=== PATIENT | male | born 1945 | race American Indian/Alaskan Native ===

== ENCOUNTER 2021-03-01 07:09 | Inpatient (IN) | payer OTHER, MEDICARE ==
--- NOTE | 2021-03-01 08:03 | XRay Report ---
CHEST 2 VIEWS INDICATION: SOB. COMPARISON: 08/12/2017 FINDINGS: Support devices: None. Heart: Within normal limits. Lungs/pleura: Small bilateral pleural effusions, left greater than right are identified which appear unchanged since 2018. This may represent chronic pleural thickening. Emphysematous changes are suspec nathan in the upper lung zones, right greater than left. No acute infiltrate or pneumothorax. Additional findings: None. IMPRESSION: No significant change since 08/12/2017. Small pleural effusions versus pleural thickening at the lung bases is noted and unchanged. I favor chronic pleural thickening. Emphysema. Signer Name: Abdelrahman Haley Jr, MD Signed: 03/01/2021 7:58 AM Workstation Name: [id number]
[2021-03-01 08:08] LABS: Basophils % (Auto) 0.5 % (0.0-1.8); Eosinophils # (Auto) 0.3 K/mm3 (0.0-0.4); Eosinophils % (Auto) 4.7 % (0.0-4.3); Hematocrit 44.9 % (35.5-45.6); Hemoglobin 15.3 gm/dl (11.8-15.2); Lymphocytes # (Auto) 1.3 K/mm3 (1.2-5.4); Lymphocytes % (Auto) 18.2 % (13.4-35.0); Mean Corpuscular HGB Conc 34 % (32-34); Mean Corpuscular Volume 97 fl (84-94); Monocytes # (Auto) 0.9 K/mm3 (0.0-0.8); Monocytes % (Auto) 12.4 % (0.0-7.3); Platelet Count 213 K/mm3 (140-440); Red Blood Count 4.64 M/mm3 (3.65-5.03)
[2021-03-01 08:48] LABS: Alanine Aminotransferase 29 units/L (7-56); Albumin 3.9 g/dL (3.9-5); BUN/Creatinine Ratio 12; Blood Urea Nitrogen 17 mg/dL (9-20); Calcium 9.2 mg/dL (8.4-10.2); Hemolysis Index 4
[2021-03-01] MEDS ORDERED: ALBUTEROL 2.5 MG/3 ML NEBU IH ONE ×3 (18:13→20:22)
[2021-03-01] MEDS ORDERED: IPRATROPIUM 0.02% NEBU 2.5 ML IH ONE ×3 (18:13→20:22)
[2021-03-01] MEDS ORDERED: methylPREDNISolone Sod Succinate 125 MG/2 ML INJ IV ONE (18:13)
[2021-03-01] MEDS ORDERED: MAGNESIUM SULFATE 2 GM/50 ML BAG IV ONE (18:13)
--- NOTE | 2021-03-01 18:34 | Emergency Department Report ---
ED Shortness of Breath HPI - General Chief Complaint: Dyspnea/Respdistress Stated Complaint: SOB Time Seen by Provider: 03/01/21 18:06 Source: patient, family Mode of arrival: Wheelchair Limitations: Other - History of Present Illness Initial Comments: 76-year-old male, history of COPD (chronically on 3 L O2), hypertension, presents to ED with difficulty breathing. Patient actually presented to the ED earlier this morning at around 7 AM. Patient reports difficulty breathing since last night. Reports he has had a cough for proximately 1 week. States he used his breathing machine at home without improvement. Patient also reports some associated diarrhea and mild loss of smell and taste. Patient states he has been fully vaccinated against COVID-19 a couple of months ago with the Moderna vaccine. Patient brought back from the waiting room due to worsening of his symptoms. PCP: the [place] Complaint: shortness of breath -: Last night Severity: moderate Consistency: constant Improves With: bronchodilators Worsens With: exertion Known History Of: COPD Associated Symptoms: cough Treatments Prior to Arrival: bronchodilator - Related Data Home Oxygen Therapy: Yes Home Oxygen Amount: 3 Liters Home Medications Medication Instructions Recorded Confirmed Last Taken Aspirin EC [Halfprin EC] 81 mg PO QDAY 05/17/15 08/12/17 08/11/17 AtorvaSTATin [Lipitor] 40 mg PO QDAY 05/17/15 08/12/17 08/11/17 Bisoprolol Fumarate [Zebeta] 10 mg PO DAILY 05/17/15 08/12/17 08/11/17 Budesoni/Formotero 160-4.5(Nf) 2 puff IH BID 05/17/15 08/12/17 08/11/17 [Symbicort 160-4.5 (Nf)] Docusate Sodium [Colace CAP] 100 mg PO QDAY PRN 05/17/15 08/12/17 08/11/17 Isosorbide Mononitrate 30 mg PO QAM 05/17/15 08/12/17 08/11/17 Omeprazole [PriLOSEC] 20 mg PO QDAY 05/17/15 08/12/17 08/11/17 PARoxetine HCL [PARoxetine] 40 mg PO QAM 05/17/15 08/12/17 08/11/17 Prazosin 2 mg PO QHS 05/17/15 08/12/1708/11/18 Sennosides [Senna Lax] 8.6 mg PO QDAY PRN 05/17/15 08/12/17 08/11/17 SEROquel 100 mg PO QHS 08/13/17 08/13/17 08/11/17 22:00 100 mg Previous Rx's Medication Instructions Recorded Last Taken Type Albuterol Mdi (or & Nicu Only) 1 puff IH Q6HR PRN #1 inha 05/20/15 08/11/17 Rx [ProAir HFA Inhaler] Budesonide [Pulmicort Respules] 0.5 mg IH Q12HR #30 nebu 05/20/15 08/11/17 Rx Ipratropium/Albuterol Sulfate 1 ampul IH Q6HR #30 ampul.neb 05/20/15 08/11/17 Rx [DUONEB *Not for PRN Use*] predniSONE [Deltasone] 20 mg PO QDAY #10 tab 05/20/15 08/11/17 Rx Budesonide [Pulmicort Respules] 0.5 mg IH Q12HRT #30 day 08/15/17 Unknown Rx Clopidogrel Bisulfate [Plavix] 75 mg PO QDAY #30 tablet 08/15/17 Unknown Rx ISOSORBIDE MONOnitrate [Imdur ER] 30 mg PO DAILY #30 tablet 08/15/17 Unknown Rx Ipratropium/Albuterol Sulfate 1 ampul IH Q6HRT PRN #30 day 08/15/17 Unknown Rx [DUONEB *Not for PRN Use*] levoFLOXacin [Levaquin TAB] 750 mg PO Q24HR #4 day 08/15/17 Unknown Rx methylPREDNISolone [Medrol Dose 1 dose PO DAILY #1 pack 08/15/17 Unknown Rx Jimmy] Allergies Allergy/AdvReac Type Severity Reaction Status Date / Time No Known Allergies Allergy Verified 03/01/21 07:10 ED Review of Systems ROS: Stated complaint: SOB Other details as noted in HPI Comment: All other systems reviewed and negative Constitutional: denies: fever Respiratory: cough, shortness of breath, wheezing Cardiovascular: denies: chest pain Gastrointestinal: diarrhea ED Past Medical Hx - Past Medical History Hx Hypertension: Yes Hx Heart Attack/AMI: Yes (2015) Hx Congestive Heart Failure: No Hx COPD: Yes Additional medical history: Anuerism Abd, cardia stents x2 - Surgical History Hx Coronary Stent: Yes (2015) Additional Surgical History: Anuerism repair. - Social History Smoking Status: Never Smoker Substance Use Type: None - Medications Home Medications: Home Medications Medication Instructions Recorded Confirmed Last Taken Type Aspirin EC [Halfprin EC] 81 mg PO QDAY 05/17/15 08/12/17 08/11/17 History AtorvaSTATin [Lipitor] 40 mg PO QDAY 05/17/15 08/12/17 08/11/17 History Bisoprolol Fumarate [Zebeta] 10 mg PO DAILY 05/17/15 08/12/17 08/11/17 History Budesoni/Formotero 160-4.5(Nf) 2 puff IH BID 05/17/15 08/12/17 08/11/17 History [Symbicort 160-4.5 (Nf)] Docusate Sodium [Colace CAP] 100 mg PO QDAY PRN 05/17/15 08/12/17 08/11/17 History Isosorbide Mononitrate 30 mg PO QAM 05/17/15 08/12/17 08/11/17 History Omeprazole [PriLOSEC] 20 mg PO QDAY 05/17/15 08/12/17 08/11/17 History PARoxetine HCL [PARoxetine] 40 mg PO QAM 05/17/15 08/12/17 08/11/17 History Prazosin 2 mg PO QHS 05/17/15 08/12/17 08/11/17 History Sennosides [Senna Lax] 8.6 mg PO QDAY PRN 05/17/15 08/12/17 08/11/17 History Albuterol Mdi (or & Nicu Only) 1 puff IH Q6HR PRN #1 inha 05/20/15 08/12/17 08/11/17 Rx [ProAir HFA Inhaler] Budesonide [Pulmicort Respules] 0.5 mg IH Q12HR #30 nebu 05/20/15 08/12/17 08/11/17 Rx Ipratropium/Albuterol Sulfate 1 ampul IH Q6HR #30 ampul.neb 05/20/15 08/12/17 08/11/17 Rx [DUONEB *Not for PRN Use*] predniSONE [Deltasone] 20 mg PO QDAY #10 tab 05/20/15 08/12/17 08/11/17 Rx SEROquel 100 mg PO QHS 08/13/17 08/13/17 08/11/17 22:00 History 100 mg Budesonide [Pulmicort Respules] 0.5 mg IH Q12HRT #30 day 08/15/17 Unknown Rx Clopidogrel Bisulfate [Plavix] 75 mg PO QDAY #30 tablet 08/15/17 Unknown Rx ISOSORBIDE MONOnitrate [Imdur ER] 30 mg PO DAILY #30 tablet 08/15/17 Unknown Rx Ipratropium/Albuterol Sulfate 1 ampul IH Q6HRT PRN #30 day 08/15/17 Unknown Rx [DUONEB *Not for PRN Use*] levoFLOXacin [Levaquin TAB] 750 mg PO Q24HR #4 day 08/15/17 Unknown Rx methylPREDNISolone [Medrol Dose 1 dose PO DAILY #1 pack 08/15/17 Unknown Rx Jimmy] ED Physical Exam - General Limitations: Other General appearance: alert - Head Head exam: Present: atraumatic, normocephalic - Eye Eye exam: Present: normal appearance, EOMI - ENT ENT exam: Present: mucous membranes moist - Respiratory Respiratory exam: Present: respiratory distress, wheezes, other (Tachypnea present) - Cardiovascular Cardiovascular Exam: Present: regular rate, normal rhythm - GI/Abdominal GI/Abdominal exam: Present: soft. Absent: distended, tenderness - Extremities Exam Extremities exam: Present: normal inspection. Absent: pedal edema, calf tenderness - Neurological Exam Neurological exam: Present: alert, oriented X3 - Psychiatric Psychiatric exam: Present: normal affect, normal mood - Skin Skin exam: Present: warm, dry, intact, normal color ED Course Vital Signs 03/01/21 03/01/21 03/01/21 07:10 15:46 18:01 Temperature 99.3 F 99.1 F Pulse Rate 88 82 108 H Pulse Rate [ Bilateral] Respiratory 36 H 16 32 H Rate Respiratory Rate [Bilateral ] Blood Pressure 121/85 156/94 Blood Pressure 152/95 [Right] O2 Sat by Pulse 92 96 88 Oximetry 03/01/21 03/01/21 18:43 22:29 Temperature Pulse Rate 99 H Pulse Rate [ 110 H Bilateral] Respiratory 19 Rate Respiratory 20 Rate [Bilateral ] Blood Pressure Blood Pressure 157/101 [Right] O2 Sat by Pulse 99 Oximetry ED Medical Decision Making - Lab Data Result diagrams: 03/01/21 07:35 03/01/21 21:40 - EKG Data -: EKG Interpreted by Me EKG shows normal: sinus rhythm, axis, intervals, QRS complexes, ST-T waves Rate: normal - EKG Data Interpretation: no acute changes - Radiology Data Radiology results: report reviewed, image reviewed - Medical Decision Making 76-year-old male presents to ED with COPD exacerbation. Patient with wheezing, tachypnea, use of accessory muscles. Patient given 1 hour nebulizer treatment along with Solu-Medrol and magnesium sulfate. Following initial treatment, patient continued to have some difficulty breathing, so another 0 was administered. Chest x-ray is negative. Covid markers sent as patient has been having some Covid-like symptoms over the last 1 week. Patient will be admitted to hospitalist, Dr. Castillo, for further management. - Differential Diagnosis COPD, pneumonia, COVID-19 Critical Care Time: Yes Critical care time in (mins) excluding proc time.: 35 Critical care attestation.: If time is entered above; I have spent that time in minutes in the direct care of this critically ill patient, excluding procedure time. Critical Care Time: 35 MIN ED Disposition Clinical Impression: Acute exacerbation of chronic obstructive pulmonary disease, Acute on chronic respiratory failure, Suspected COVID-19 virus infection Disposition: OP ADMIT IP TO THIS HOSP Is pt being admited?: Yes Condition: Stable Time of Disposition: 21:37
[2021-03-01] MEDS ORDERED: ACETAMINOPHEN 325 MG TAB PO ONE (20:23)
[2021-03-01 22:20] LABS: C-Reactive Protein 3.9 mg/dL (0.00-1.30)
[2021-03-01] MEDS ORDERED: MORPHINE 4 MG/1 ML INJ IV PRN (22:23)
[2021-03-01] MEDS ORDERED: MAGNESIUM HYDROXIDE (MOM) ORAL LIQD UDC PO PRN (22:23)
[2021-03-01] MEDS ORDERED: ONDANSETRON 4 MG/2 ML INJ IV PRN (22:23)
--- NOTE | 2021-03-01 22:35 | History and Physical Report ---
History of Present Illness Date of examination: 03/01/21 Date of admission: 03/01/21 21:37 Chief complaint: Difficulty Breathing History of present illness: 76-year-old male with known history of hypertension, COPD on 3 L of oxygen at home presents to the emergency room today complaining of shortness of breath that has been ongoing over the past 24 hours. He has also been having some cough productive of some whitish sputum. He has been using his nebulizing ann atment without any significant improvement. He denies any fever or chills, no chest pain, no headache or dizziness and no diaphoresis. He however indicates that he has had some mild loss of smell and taste and has had some episodes of diarrhea. Patient denies any sick contacts and no recent travel. Denies any contact with anyone with COVID-19. He has been fully vaccinated against COVID-19 with hemodialysis vaccine. Work-up in the emergency room today, chest x-ray shows no significant changes. There is small pleural effusions versus pleural thickening at the lung bases which is unchanged. Labs reveal level elevated D-dimer of about 3000. Past History Past Medical History: acute SC (In 2016), hypertension, other (Abdominal Aneurysm. ) Past Surgical History: PTCA, Other (Aneurysm repair) Social history: smoking (Former smoker) Family history: no significant family history Medications and Allergies Allergies Allergy/AdvReac Type Severity Reaction Status Date / Time No Known Allergies Allergy Verified 03/01/21 07:10 Home Medications Medication Instructions Recorded Confirmed Last Taken Type Aspirin EC [Halfprin EC] 81 mg PO QDAY 05/17/15 08/12/17 08/11/17 History AtorvaSTATin [Lipitor] 40 mg PO QDAY 05/17/15 08/12/17 08/11/17 History Bisoprolol Fumarate [Zebeta] 10 mg PO DAILY 05/17/15 08/12/17 08/11/17 History Budesoni/Formotero 160-4.5(Nf) 2 puff IH BID 05/17/15 08/12/17 08/11/17 History [Symbicort 160-4.5 (Nf)] Docusate Sodium [Colace CAP] 100 mg PO QDAY PRN 05/17/15 08/12/17 08/11/17 History Isosorbide Mononitrate 30 mg PO QAM 10/08/12/17 08/11/17 History Omeprazole [PriLOSEC] 20 mg PO QDAY 05/17/15 08/12/17 08/11/17 History PARoxetine HCL [PARoxetine] 40 mg PO QAM 05/17/15 08/12/17 08/11/17 History Prazosin 2 mg PO QHS 05/17/15 08/12/17 08/11/17 History Sennosides [Senna Lax] 8.6 mg PO QDAY PRN 05/17/15 08/12/17 08/11/17 History Albuterol Mdi (or & Nicu Only) 1 puff IH Q6HR PRN #1 inha 05/20/15 08/12/17 08/11/17 Rx [ProAir HFA Inhaler] Budesonide [Pulmicort Respules] 0.5 mg IH Q12HR #30 nebu 05/20/15 08/12/17 08/11/17 Rx Ipratropium/Albuterol Sulfate 1 ampul IH Q6HR #30 ampul.neb 05/20/15 08/12/17 08/11/17 Rx [DUONEB *Not for PRN Use*] predniSONE [Deltasone] 20 mg PO QDAY #10 tab 05/20/15 08/12/17 08/11/17 Rx SEROquel 100 mg PO QHS 08/13/17 08/13/17 08/11/17 22:00 History 100 mg Budesonide [Pulmicort Respules] 0.5 mg IH Q12HRT #30 day 08/15/17 Unknown Rx Clopidogrel Bisulfate [Plavix] 75 mg PO QDAY #30 tablet 08/15/17 Unknown Rx ISOSORBIDE MONOnitrate [Imdur ER] 30 mg PO DAILY #30 tablet 08/15/17 Unknown Rx Ipratropium/Albuterol Sulfate 1 ampul IH Q6HRT PRN #30 day 08/15/17 Unknown Rx [DUONEB *Not for PRN Use*] levoFLOXacin [Levaquin TAB] 750 mg PO Q24HR #4 day 08/15/17 Unknown Rx methylPREDNISolone [Medrol Dose 1 dose PO DAILY #1 pack 08/15/17 Unknown Rx Jimmy] Active Meds: Active Medications Acetaminophen (Acetaminophen 325 Mg Tab) 650 mg PO Q4H PRN PRN Reason: Pain MILD(1-3)/Fever >100.5/MARSHALL Albuterol/Ipratropium (Ipratropium/Albuterol Sulfate 3 Ml Ampul.Neb) 1 ampul IH Q4HRT BJ Magnesium Hydroxide (Magnesium Hydroxide (Mom) Oral Liqd Udc) 30 ml PO Q4H PRN PRN Reason: Constipation Methylprednisolone Sodium Succinate (Methylprednisolone Sod Succinate 40 Mg/1 Ml Inj) 40 mg IV Q8HR BJ Morphine Sulfate (Morphine 2 Mg/1 Ml Inj) 2 mg IV Q4H PRN PRN Reason: Pain, Moderate (4-6) Morphine Sulfate (Morphine 4 Mg/1 Ml Inj) 4 mg IV Q4H PRN PRN Reason: Pain , Severe (7-10) Ondansetron HCl (Ondansetron 4 Mg/2 Ml Inj) 4 mg IV Q8H PRN PRN Reason: Nausea And Vomiting Sodium Chloride (Sodium Chloride 0.9% 10 Ml Flush Syringe) 10 ml IV BID BJ Sodium Chloride (Sodium Chloride 0.9% 10 Ml Flush Syringe) 10 ml IV PRN PRN PRN Reason: LINE FLUSH Review of Systems Constitutional: no fever, no chills Ears, nose, mouth and throat: no nasal congestion, no sore throat Cardiovascular: no chest pain, no palpitations Respiratory: cough, shortness of breath Gastrointestinal: no abdominal pain, no nausea, no vomiting, no diarrhea Genitourinary Male: no dysuria, no hematuria, no flank pain, no nocturia Musculoskeletal: no neck pain, no low back pain Integumentary: no rash, no pruritis Neurological: no headaches, no confusion Psychiatric: no anxiety, no depression Endocrine: no polyphagia, no polydipsia, no polyuria, no nocturia Exam - Constitutional Vitals: Temp Pulse Resp BP Pulse Ox 99.1 F 110 H 20 157/101 99 03/01/21 18:01 03/01/21 22:29 03/01/21 22:29 03/01/21 18:43 03/01/21 18:43 General appearance: Present: no acute distress, well-nourished - EENT Eyes: Present: PERRL, EOM intact. Absent: scleral icterus ENT: hearing intact, clear oral mucosa, dentition normal - Neck Neck: Present: supple, normal ROM - Respiratory Respiratory effort: normal Respiratory: bilateral: wheezing - Cardiovascular Rhythm: regular Heart Sounds: Present: S1 & S2. Absent: gallop, systolic murmur, diastolic murmur, rub, click - Extremities Extremities: no ischemia, pulses intact, pulses symmetrical, No edema, Full ROM Peripheral Pulses: within normal limits - Abdominal General gastrointestinal: Present: soft, non-tender, non-distended, normal bowel sounds. Absent: mass - Integumentary Integumentary: Present: clear, warm, dry. Absent: rash - Musculoskeletal Musculoskeletal: strength equal bilaterally - Psychiatric Psychiatric: appropriate mood/affect, intact judgment & insight, memory intact, cooperative - Neurologic Neurologic: CNII-XII intact, no focal deficits, moves all extremities HEART Score - HEART Score Troponin: Troponin T < 0.010 ng/mL (0.00-0.029) 03/01/21 07:35 Results - Labs CBC & Chem 7: 03/01/21 07:35 03/01/21 21:40 Labs: Abnormal lab results 03/01/21 03/01/21 03/01/21 Range/Units 07:35 07:35 21:40 Hgb 15.3 H (11.8-15.2) gm/dl MCV 97 H (84-94) fl MCH 33 H (28-32) pg Knox % (Auto) 12.4 H (0.0-7.3) % Eos % (Auto) 4.7 H (0.0-4.3) % Knox # (Auto) 0.9 H (0.0-0.8) K/mm3 Creatinine 1.4 H (0.8-1.3) mg/dL Alkaline Phosphatase 167 H (35-129) units/L Lactate Dehydrogenase 245 H (91-180) units/L C-Reactive Protein 3.90 H (0.00-1.30) mg/dL Assessment and Plan - Patient Problems (1) Acute exacerbation of chronic obstructive pulmonary disease (COPD) Current Visit: No Status: Acute Plan to address problem: Patient placed on nebulizing treatments and IV steroid. We will keep O2 saturation greater than equal to 93%. Consult placed to pulmonology for evaluation. (2) Suspected COVID-19 virus infection Current Visit: Yes Status: Acute Plan to address problem: Patient states he has been fully vaccinated against COVID-19 with the maternal vaccine. We will however await COVID-19 testing. (3) Elevated d-dimer Current Visit: Yes Status: Acute Plan to address problem: Etiology unclear. We will schedule patient for CT angiogram of the chest to rule out PE (4) DVT prophylaxis Current Visit: No Status: Acute Plan to address problem: Patient placed on anticoagulation with subcutaneous heparin. (5) Full code status Current Visit: Yes Status: Acute Plan to address problem: Patient is full code.
[2021-03-02] MEDS: IPRATROPIUM/ALBUTEROL SULFATE 3 ML AMPUL.NEB IH SCH ×6 (04:12→21:01)
--- NOTE | 2021-03-02 04:42 | Cat Scan Report ---
CTA CHEST WITH CONTRAST INDICATION / CLINICAL INFORMATION: Elevated D-Dimer, Dyspnea, R/O Covid-19. TECHNIQUE: Axial CT images were obtained through the chest after injection of 100 mL Omnipaque 350 IV contrast. 3 plane MIP and/or 3D reconstructions were produced. All CT scans at this location are per formed using CT dose reduction for ALARA by means of automated exposure control. COMPARISON: CT dated 08/12/17 FINDINGS: PULMONARY ARTERIES: No pulmonary emboli. THORACIC AORTA: No significant abnormality. HEART: No significant abnormality. CORONARY ARTERY CALCIFICATION: Moderate. Right coronary artery stent is unchanged. MEDIASTINUM / ANGELA: No significant abnormality. PLEURA: No pleural effusion. No pneumothorax. LUNGS: Moderately elevated right hemidiaphragm is unchanged with bibasilar atelectasis and scarring. No acute airspace disease. Upper lobe predominant pulmonary emphysema and bullous disease is unchange d. ADDITIONAL FINDINGS: None. UPPER ABDOMEN: Solid nodule in the left adrenal gland measuring 3.7 x 3.5 cm which does not have angeli acteristic appearance for benign adenoma. Small calcified gallstones. SKELETAL STRUCTURES: No significant osseous abnormality. IMPRESSION: 1. No CT evidence for pulmonary embolism. 2. No acute airspace disease or pneumonia. 3. Moderate pulmonary emphysema, unchanged. 4. Solid left adrenal nodule which does not definitely have a benign appearance. Follow-up CT abdomen without and with contrast or MRI abdomen without and with contrast using adrenal protocol is recomme nded. Signer Name: Gio Alarcon MD Signed: 03/02/2021 4:37 AM Workstation Name: [id number]
[2021-03-02] MEDS: HEPARIN 5,000 UNIT/1 ML VIAL SUB-Q SCH ×3 (08:45→23:13)
[2021-03-02] MEDS: methylPREDNISolone Sod Succinate 40 MG/1 ML INJ IV SCH ×3 (08:45→23:12)
--- NOTE | 2021-03-02 10:59 | Electrocardiograph Report ---
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
[2021-03-02 11:12] LABS: Basophils % (Auto) 0.2 % (0.0-1.8); Hematocrit 47.1 % (35.5-45.6); Hemoglobin 15.7 gm/dl (11.8-15.2); Lymphocytes # (Auto) 0.9 K/mm3 (1.2-5.4); Lymphocytes % (Auto) 14.2 % (13.4-35.0); Mean Corpuscular HGB Conc 33 % (32-34); Mean Corpuscular Volume 98 fl (84-94); Monocytes # (Auto) 0.6 K/mm3 (0.0-0.8); Monocytes % (Auto) 8.7 % (0.0-7.3); Platelet Count 200 K/mm3 (140-440); Red Blood Count 4.83 M/mm3 (3.65-5.03); Red Cell Distribution Width 15.3 % (13.2-15.2)
[2021-03-02 11:21] LABS: INR 0.97 (0.87-1.13)
[2021-03-02 12:04] LABS: BUN/Creatinine Ratio 15; Blood Urea Nitrogen 20 mg/dL (9-20); Calcium 9.1 mg/dL (8.4-10.2); Hemolysis Index 18
--- NOTE | 2021-03-02 15:09 | Progress Note ---
Assessment and Plan Assessment and Plan - Patient Problems (1) Acute exacerbation of chronic obstructive pulmonary disease (COPD) Current Visit: No Status: Acute Plan to address problem: Patient placed on nebulizing treatments and IV steroid. We will keep O2 saturation greater than equal to 93%. Consult placed to pulmonology for evaluation. (2) Suspected COVID-19 virus infection Current Visit: Yes Status: Acute Plan to address problem: Patient states he has been fully vaccinated against COVID-19 with the maternal vaccine. We will however await COVID-19 testing. (3) Elevated d-dimer Current Visit: Yes Status: Acute Plan to address problem: Etiology unclear. We will schedule patient for CT angiogram of the chest to rule out PE (4) DVT prophylaxis Current Visit: No Status: Acute Plan to address problem: Patient placed on anticoagulation with subcutaneous heparin. (5) Full code status Current Visit: Yes Status: Acute Plan to address problem: Patient is full code. Subjective Date of service: 03/02/21 Interval history: 76-year-old male with known history of hypertension, COPD on 3 L of oxygen at home presents to the emergency room today complaining of shortness of breath that has been ongoing over the past 24 hours. He has also been having some cough productive of some whitish sputum. He has been using his nebulizing treatment without any significant improvement. He denies any fever or chills, no chest pain, no headache or dizziness and no diaphoresis. He however indicates that he has had some mild loss of smell and taste and has had some episodes of diarrhea. Patient denies any sick contacts and no recent travel. Denies any contact with anyone with COVID-19. He has been fully vaccinated against COVID-19 with hemodialysis vaccine. Work-up in the emergency room today, chest x-ray shows no significant changes. There is small pleural effusions versus pleural thickening at the lung bases which is unchanged. Labs reveal level elevated D-dimer of about 3000. Objective - Constitutional Vitals: Vital Signs - 12hr 03/02/21 03/02/21 03/02/21 04:01 05:01 06:01 Pulse Rate 115 H 107 H 113 H Pulse Rate [ Bilateral] Respiratory 32 H 20 21 Rate Respiratory Rate [Bilateral ] Blood Pressure 151/118 133/88 131/86 O2 Sat by Pulse 95 97 96 Oximetry 03/02/21 03/02/21 03/02/21 07:01 08:54 09:18 Pulse Rate 105 H Pulse Rate [ 107 H Bilateral] Respiratory 15 Rate Respiratory 20 Rate [Bilateral ] Blood Pressure 135/82 O2 Sat by Pulse 97 92 Oximetry - Labs CBC & Chem 7: 03/02/21 10:42 03/02/21 10:42 Labs: Abnormal lab results 03/01/21 03/01/21 03/02/21 Range/Units 21:40 21:40 10:42 Hgb 15.7 H (11.8-15.2) gm/dl Hct 47.1 H (35.5-45.6) % MCV 98 H (84-94) fl MCH 33 H (28-32) pg RDW 15.3 H (13.2-15.2) % Dougherty % (Auto) 8.7 H (0.0-7.3) % Lymph # (Auto) 0.9 L (1.2-5.4) K/mm3 Seg Neutrophils % 76.9 H (40.0-70.0) % D-Dimer 2978.66 H (0-234) ng/mlDDU Lactate Dehydrogenase 245 H (91-180) units/L C-Reactive Protein 3.90 H (0.00-1.30) mg/dL HEART Score - HEART Score Troponin: Troponin T < 0.010 ng/mL (0.00-0.029) 03/01/21 07:35
--- NOTE | 2021-03-02 15:52 | Consultation ---
History of Present Illness Consult date: 03/02/21 Requesting physician: VERITO FERNANDEZ Reason for consult: other (COVID-19 infection) History of present illness: PULMONARY/CCM CONSULT NOTE (Full dictation # [id number]) Please see dictated notes for full details Past History Past Medical History: acute PR (In 2016), hypertension, other (Abdominal Aneurysm. ) Past Surgical History: PTCA, Other (Aneurysm repair) Social history: smoking (Former smoker) Family history: no significant family history Medications and Allergies Allergies Allergy/AdvReac Type Severity Reaction Status Date / Time No Known Allergies Allergy Verified 03/01/21 07:10 Home Medications Medication Instructions Recorded Confirmed Last Taken Type Aspirin EC [Halfprin EC] 81 mg PO QDAY 05/17/15 03/02/21 08/11/17 History AtorvaSTATin [Lipitor] 40 mg PO QDAY 05/17/15 03/02/21 08/11/17 History Bisoprolol Fumarate [Zebeta] 10 mg PO DAILY 05/17/15 03/02/21 08/11/17 History Budesoni/Formotero 160-4.5(Nf) 2 puff IH BID 05/17/15 03/02/21 08/11/17 History [Symbicort 160-4.5 (Nf)] Docusate Sodium [Colace CAP] 100 mg PO QDAY PRN 05/17/15 03/02/21 08/11/17 Histo ry Isosorbide Mononitrate 30 mg PO QAM 05/17/15 03/02/21 08/11/17 History Omeprazole [PriLOSEC] 20 mg PO QDAY 05/17/15 03/02/21 08/11/17 History PARoxetine HCL [PARoxetine] 40 mg PO QAM 05/17/15 03/02/21 08/11/17 History Prazosin 2 mg PO QHS 05/17/15 03/02/21 08/11/17 History Sennosides [Senna Lax] 8.6 mg PO QDAY PRN 05/17/15 03/02/21 08/11/17 History Albuterol Mdi (or & Nicu Only) 1 puff IH Q6HR PRN #1 inha 05/20/15 03/02/21 08/11/17 Rx [ProAir HFA Inhaler] Budesonide [Pulmicort Respules] 0.5 mg IH Q12HR #30 nebu 05/20/15 03/02/21 08/11/17 Rx Ipratropium/Albuterol Sulfate 1 ampul IH Q6HR #30 ampul.neb 05/20/15 03/02/21 08/11/17 Rx [DUONEB *Not for PRN Use*] predniSONE [Deltasone] 20 mg PO QDAY #10 tab 05/20/15 03/02/21 08/11/17 Rx SEROquel 100 mg PO QHS 08/13/17 03/02/21 08/11/17 22:00 History 100 mg Budesonide [Pulmicort Respules] 0.5 mg IH Q12HRT #30 day 08/15/17 03/02/21 Unknown Rx Clopidogrel Bisulfate [Plavix] 75 mg PO QDAY #30 tablet 08/15/17 03/02/21 Unknown Rx ISOSORBIDE MONOnitrate [Imdur ER] 30 mg PO DAILY #30 tablet 08/15/17 03/02/21 Unknown Rx Ipratropium/Albuterol Sulfate 1 ampul IH Q6HRT PRN #30 day 08/15/17 03/02/21 Unknown Rx [DUONEB *Not for PRN Use*] levoFLOXacin [Levaquin TAB] 750 mg PO Q24HR #4 day 08/15/17 03/02/21 Unknown Rx methylPREDNISolone [Medrol Dose 1 dose PO DAILY #1 pack 08/15/17 03/02/21 Un known Rx Jimmy] Active Meds: Active Medications Acetaminophen (Acetaminophen 325 Mg Tab) 650 mg PO Q4H PRN PRN Reason: Pain MILD(1-3)/Fever >100.5/MARSHALL Albuterol/Ipratropium (Ipratropium/Albuterol Sulfate 3 Ml Ampul.Neb) 1 ampul IH Q4HRT [facility] Last Admin: 03/02/21 11:53 Dose: 1 ampul Documented by: Heparin Sodium (Porcine) (Heparin 5,000 Unit/1 Ml Vial) 5,000 unit SUB-Q Q8HR [facility] Last Admin: 03/02/21 13:48 Dose: 5,000 unit Documented by: Magnesium Hydroxide (Magnesium Hydroxide (Mom) Oral Liqd Udc) 30 ml PO Q4H PRN PRN Reason: Constipation Methylprednisolone Sodium Succinate (Methylprednisolone Sod Succinate 40 Mg/1 Ml Inj) 40 mg IV Q8HR [facility] Last Admin: 03/02/21 13:48 Dose: 40 mg Documented by: Morphine Sulfate (Morphine 2 Mg/1 Ml Inj) 2 mg IV Q4H PRN PRN Reason: Pain, Moderate (4-6) Morphine Sulfate (Morphine 4 Mg/1 Ml Inj) 4 mg IV Q4H PRN PRN Reason: Pain , Severe (7-10) Ondansetron HCl (Ondansetron 4 Mg/2 Ml Inj) 4 mg IV Q8H PRN PRN Reason: Nausea And Vomiting Sodium Chloride (Sodium Chloride 0.9% 10 Ml Flush Syringe) 10 ml IV BID [facility] Last Admin: 03/02/21 10:00 Dose: Not Given Documented by: Sodium Chloride (Sodium Chloride 0.9% 10 Ml Flush Syringe) 10 ml IV PRN PRN PRN Reason: LINE FLUSH Physical Examination Vital signs: Vital Signs Temp Pulse Resp BP Pulse Ox 99.3 F 88 36 H 121/85 92 03/01/21 07:10 03/01/21 07:10 03/01/21 07:10 03/01/21 07:10 03/01/21 07:10 Results - Laboratory Findings CBC and BMP: 03/02/21 10:42 03/02/21 10:42 PT/INR, D-dimer PT 13.4 Sec. (12.2-14.9) 03/02/21 10:42 INR 0.97 (0.87-1.13) 03/02/21 10:42 D-Dimer 2978.66 ng/mlDDU (0-234) H 03/01/21 21:40 Abnormal lab findings: Abnormal Labs 03/01/21 03/01/21 03/01/21 07:35 07:35 21:40 Hgb 15.3 H Hct MCV 97 H MCH 33 H RDW [place] % (Auto) 12.4 H Eos % (Auto) 4.7 H Lymph # (Auto) [place] # (Auto) 0.9 H Seg Neutrophils % D-Dimer 2978.66 H Creatinine 1.4 H Alkaline Phosphatase 167 H Lactate Dehydrogenase C-Reactive Protein 03/01/21 03/02/21 21:40 10:42 Hgb 15.7 H Hct 47.1 H MCV 98 H MCH 33 H RDW 15.3 H [place] % (Auto) 8.7 H Eos % (Auto) Lymph # (Auto) 0.9 L [place] # (Auto) Seg Neutrophils % 76.9 H D-Dimer Creatinine Alkaline Phosphatase Lactate Dehydrogenase 245 H C-Reactive Protein 3.90 H
[2021-03-02] MEDS ORDERED: ALUM-MAG HYDROXIDE-SIMETHICONE 200-200-20MG/5ML ORAL LIQD 30 ML PO PRN (16:14)
[2021-03-02] MEDS: ARFORMOTEROL 15 MCG/2 ML NEBU IH SCH (21:01)
[2021-03-02] MEDS: BUDESONIDE 0.5 MG/2 ML NEBU IH SCH (21:01)
[2021-03-02] MEDS: levoFLOXacin 500 MG TAB PO SCH (21:46)
[2021-03-02] MEDS: MORPHINE 2 MG/1 ML INJ IV PRN (21:47)
[2021-03-03] MEDS: IPRATROPIUM/ALBUTEROL SULFATE 3 ML AMPUL.NEB IH SCH ×5 (00:13→22:56)
--- NOTE | 2021-03-03 02:07 | Consultation ---
DATE OF CONSULTATION: 03/02/2021 PULMONARY CONSULTATION CONSULTING PHYSICIAN: Dr. Josiah Castillo. REASON FOR CONSULTATION: Acute exacerbation of COPD, the patient under investigation for COVID-19 infection. CHIEF COMPLAINT AND HISTORY OF PRESENT ILLNESS: The patient is a now 76-year-old male with past medical history significant indeed for a diagnosis of COPD on home oxygen at 3 liters nasal cannula, presented to the Emergency Room complaining of shortness of breath that have been going on for about 24-48 hours. Cough was productive of whitish phlegm, using more bronchodilator treatments at home than usual, producing a little bit more phlegm than usual. He denied any actual chest pain. He denied palpitations. He did have some vague symptoms of anosmia, diarrhea suggestive of possible COVID-19; however, he tells me he has got post his COVID-19 vaccinations. Evaluation in the Emergency Room revealed essentially COPD exacerbation and he is under review for evaluation of possible COVID-19 infection. We are asked to assist with management. When I stopped by to see him, he was a little frustrated, he had been in the Emergency Room for a few days, was getting anxious, wanted to go up to room, but his work of breathing was increasing. 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 When asked about tobacco use or abuse history, he does have a 11-ivpb-czfo-a-year remote tobacco smoking history. He denied any gross or streaky hemoptysis. He denies any new-onset leg pain or swelling, either unilaterally or bilaterally or any suggestion of deep venous thrombosis. This really is as much of the history of presentation as I have. PAST MEDICAL HISTORY: History of coronary artery disease, hypertension, COPD on home oxygen, history of abdominal aortic aneurysm. PAST SURGICAL HISTORY: He has had a repair of that aneurysm. MEDICATIONS: He was on at the time I stopped by to see him, according to the medication administration record included the following: Tylenol 650 mg p.o. q. 4 hours p.r.n. mild pain or fever, DuoNeb nebulizer treatments scheduled q. 4 hours, heparin 5000 units subcu q. 8 hours, Solu-Medrol 40 mg IV q. 8 hours, morphine sulfate 4 mg IV q. 4 hours p.r.n. severe pain and 2 mg IV q. 4 hours p.r.n. moderate pain, Zofran 4 mg IV q. 8 hours p.r.n. nausea and vomiting. ALLERGIES: No known drug allergies. DIET: Thin gentleman. Denies significant weight loss or gain in the preceding few weeks to months. FAMILY AND SOCIAL HISTORY: Lives in the community, remote 95-bjni-xehp-a-year tobacco smoking history. Denies alcohol or illicit drug use or abuse. FAMILY HISTORY: Otherwise, noncontributory. REVIEW OF SYSTEMS: No loss of consciousness. No new-onset seizures. No new-onset focal weakness. He denies gross hematochezia or melena. Denies gross hematuria or dysuria. No hematemesis, no hemoptysis. He has increased phlegm production, increased shortness of breath. He denies any new rash on his body. He denies heat or cold intolerance, polydipsia, polyuria. Complete 13-system review of system was obtained. Pertinent positives and/or negatives as in body of history above, otherwise they are noncontributory. PHYSICAL EXAMINATION: VITAL SIGNS: At presentation, low-grade fever of 99.3 degrees Fahrenheit, pulse of 88, respiratory rate of 36, blood pressure 121/85, O2 sats were 92%, inspired oxygen concentration at that time was not recorded. When I saw him, O2 sats were 97% on 3 liters nasal cannula. GENERAL: He is an elderly looking male. Normocephalic, atraumatic, talking to me with slightly interrupted sentences with mildly increased respiratory effort at rest. HEENT: Anicteric. No conjunctival erythema. Oropharynx was moist. Mallampati II oropharynx. NECK: No gross jugular venous distention, no thyromegaly. Grossly, there were no palpable lymph nodes in the supraclavicular or submandibular lymph node chains. LUNGS: Auscultation of both lung mi significant for diminished bilateral breath sounds, prolonged expiratory phase. No wheezing, some basilar rhonchi. HEART: Heart sounds 1 and 2 are heard at the time of my evaluation, regular rate and rhythm without overt rubs or murmurs. ABDOMEN: Soft, flat. Bowel sounds are positive. Nontender, no palpable hepatosplenomegaly. EXTREMITIES: Without overt digital clubbing or cyanosis, no pedal edema. Pedal pulses are 2+ bilaterally. NEUROLOGIC: Pupils are equal, round, about 4 mm, reactive to light. Extraocular muscle movements were intact. He moves all 4 extremities spontaneously. SKIN: Normal turgor; however, without overt cellulitis or rash. PSYCHIATRIC: Mood was normal. Affect was anxious. He had intact judgment and insight. LABORATORY DATA: From my review are as follows: Admission white cell count 7000, hemoglobin 15.3, hematocrit 44.9, platelet count 213. No manual differential. D-dimer was elevated at 2979. Serum sodium was 140, potassium 4.5, chloride 106, bicarbonate 24, BUN 17, creatinine 1.4, glucose was 84. Creatinine is down to 1.3. Liver function test within normal limits. Troponin within normal limits. BNP within normal limits. Procalcitonin within normal limits. Coronavirus PCR was negative. No microbiology studies. Chest x-ray is consistent with COPD. There appears to be an air-fluid level in the right lower lobe region, possible small pleural effusion over there. No gross pneumothorax, no gross bony fracture. A CT of his chest was done. No gross filling defect centrally, certainly consistent with pulmonary emboli. He appears to have diaphragmatic hernia, significantly elevated right hemidiaphragm and therefore some abdominal contents in the lower thoracic region. Lung windows, severe bullous and paraseptal emphysema, upper lung zone predominant. No real area of consolidation consistent with a pneumonia. ASSESSMENT: 1. Ggafq-ua-lmsdwwg hypoxemic respiratory failure. 2. Acute exacerbation of chronic obstructive pulmonary disease. 3. History of coronary artery disease. 4. History of hypertension. 5. History of abdominal aortic aneurysm, status post repair. 6. Hemoconcentration. 7. Acute kidney injury at presentation that is resolving. PLAN: I have counseled him and calmed him down. He is about to get a bed. I have spoken to the nurse night shift supervisor and hopefully we will find a bed for him upstairs. Thankfully, he is COVID negative. I will continue the systemic steroids at the current dose. I will add long-acting bronchodilators as well as inhaled corticosteroids. I reduced the DuoNeb frequency to q.i.d. instead of q. 4 hours. Oxygen will be weaned to keep sats greater than or equal to about 88-90%. Restrictive oxygen therapy in the short time. We will complete 5 days of empiric community-acquired pneumonia therapy for this acute severe COPD exacerbation. I will go with Levaquin monotherapy for ease of administration and conversion to oral form. He is appropriately on DVT prophylaxis. I am going to put him on GI prophylaxis, especially with him on systemic steroids. Flu and pneumonia vaccination will be addressed per protocol. Thank you very much for the consult. We will follow along and make further recommendations as picture progresses/becomes clearer. TID: [id number] RECEIPT: [id number] AMENA/INES
[2021-03-03] MEDS: methylPREDNISolone Sod Succinate 40 MG/1 ML INJ IV SCH ×3 (05:56→23:12)
[2021-03-03] MEDS: HEPARIN 5,000 UNIT/1 ML VIAL SUB-Q SCH ×3 (05:56→23:12)
[2021-03-03] MEDS: BUDESONIDE 0.5 MG/2 ML NEBU IH SCH ×2 (08:26→22:55)
[2021-03-03] MEDS: ARFORMOTEROL 15 MCG/2 ML NEBU IH SCH ×2 (08:26→22:55)
[2021-03-03] MEDS: FAMOTIDINE 20 MG TAB PO SCH (09:27)
[2021-03-03] MEDS: levoFLOXacin 500 MG TAB PO SCH (09:27)
[2021-03-03] MEDS ORDERED: PNEUMOCOCCAL 23 Valent 0.5 ML VIAL IM ONE (12:00)
--- NOTE | 2021-03-03 13:23 | Consultation ---
History of Present Illness - Reason for Consult Consult date: 03/03/21 - History of Present Illness 76-year-old male past medical history hypertension, COPD on 3 L oxygen at home presented to hospital complaining of shortness of breath. This began approximate 24 hours prior to admission was associated with productive cough. His home treatments have not been effective in relieving his symptoms. He notes being fully vaccinated against Covid. Afebrile since admission with a white count 6.4. Covid negative. Normal renal function. Normal procalcitonin. Blood cultures no growth so far. Currently on Levaquin. Imaging personally reviewed: Chest CTA: No evidence of pulmonary embolism, no acute airspace disease. Moderate emphysema. Review of Systems: Bold if positive, otherwise negative General: fevers, chills, rigors HEENT: visual disturbance, diplopia, eye pain Respiratory: cough, sputum, hemoptysis, shortness of breath Cardiovascular: chest pain, syncope Gastrointestinal: nausea, vomiting, diarrhea, abdominal pain Genitourinary: dysuria, hematuria, flank pain Musculoskeletal: neck pain, back pain, joint pain, edema Neurologic: headaches, seizures Hematologic: easy bruising or bleeding Endocrine: night sweats, acute weight loss Skin: rash, jaundice, redness Psychiatric: suicidal, homicidal ideation Past History Past Medical History: acute NV (In 2016), hypertension, other (Abdominal Aneurysm. ) Past Surgical History: PTCA, Other (Aneurysm repair) Social history: smoking (Former smoker) Family history: no significant family history Medications and Allergies Allergies Allergy/AdvReac Type Severity Reaction Status Date / Time No Known Allergies Allergy Verified 03/01/21 07:10 Home Medications Medication Instructions Recorded Confirmed Last Taken Type Aspirin EC [Halfprin EC] 81 mg PO QDAY 05/17/15 03/02/21 08/11/17 History AtorvaSTATin [Lipitor] 40 mg PO QDAY 05/17/15 03/02/21 08/11/17 History Bisoprolol Fumarate [Zebeta] 10 mg PO DAILY 05/17/15 03/02/21 08/11/17 History Budesoni/Formotero 160-4.5(Nf) 2 puff IH BID 05/17/15 03/02/21 08/11/17 History [Symbicort 160-4.5 (Nf)] Docusate Sodium [Colace CAP] 100 mg PO QDAY PRN 05/17/15 03/02/21 08/11/17 History Isosorbide Mononitrate 30 mg PO QAM 05/17/15 03/02/21 08/11/17 History Omeprazole [PriLOSEC] 20 mg PO QDAY 05/17/15 03/02/21 08/11/17 History PARoxetine HCL [PARoxetine] 40 mg PO QAM 05/17/15 03/02/21 08/11/17 History Prazosin 2 mg PO QHS 05/17/15 03/02/21 08/11/17 History Sennosides [Senna Lax] 8.6 mg PO QDAY PRN 05/17/15 03/02/21 08/11/17 History Albuterol Mdi (or & Nicu Only) 1 puff IH Q6HR PRN #1 inha 05/20/15 03/02/21 08/11/17 Rx [ProAir HFA Inhaler] Budesonide [Pulmicort Respules] 0.5 mg IH Q12HR #30 nebu 05/20/15 03/02/21 0 08/11/17 Rx Ipratropium/Albuterol Sulfate 1 ampul IH Q6HR #30 ampul.neb 05/20/15 03/02/21 08/11/17 Rx [DUONEB *Not for PRN Use*] predniSONE [Deltasone] 20 mg PO QDAY #10 tab 05/20/15 03/02/21 08/11/17 Rx SEROquel 100 mg PO QHS 08/13/17 03/02/21 08/11/17 22:00 History 100 mg Budesonide [Pulmicort Respules] 0.5 mg IH Q12HRT #30 day 08/15/17 03/02/21 Unknown Rx Clopidogrel Bisulfate [Plavix] 75 mg PO QDAY #30 tablet 08/15/17 03/02/21 Unknown Rx ISOSORBIDE MONOnitrate [Imdur ER] 30 mg PO DAILY #30 tablet 08/15/17 03/02/21 Unknown Rx Ipratropium/Albuterol Sulfate 1 ampul IH Q6HRT PRN #30 day 08/15/17 03/02/21 Unknown Rx [DUONEB *Not for PRN Use*] levoFLOXacin [Levaquin TAB] 750 mg PO Q24HR #4 day 08/15/17 03/02/21 Unknown Rx methylPREDNISolone [Medrol Dose 1 dose PO DAILY #1 pack 08/15/17 03/02/21 Unknown Rx Jimmy] Active Meds: Active Medications Acetaminophen (Acetaminophen 325 Mg Tab) 650 mg PO Q4H PRN PRN Reason: Pain MILD(1-3)/Fever >100.5/MARSHALL Al Hydrox/Mg Hydrox/Simethicone (Alum-Mag Hydroxide-Simethicone [id number]/5ml Oral Liqd 30 Ml) 15 ml PO Q4H PRN PRN Reason: Indigestion Albuterol/Ipratropium (Ipratropium/Albuterol Sulfate 3 Ml Ampul.Neb) 1 ampul IH Q6HRT ON [facility] OF [facility] Last Admin: 03/03/21 08:26 Dose: 1 ampul Documented by: Arformoterol Tartrate (Arformoterol 15 Mcg/2 Ml Nebu) 15 mcg IH Q12HRT ON LICENSE OF [facility] Last Admin: 03/03/21 08:26 Dose: 15 mcg Documented by: Budesonide (Budesonide 0.5 Mg/2 Ml Nebu) 0.5 mg IH Q12HRT ON [facility] OF [facility] Last Admin: 03/03/21 08:26 Dose: 0.5 mg Documented by: Famotidine (Famotidine 20 Mg Tab) 20 mg PO QDAY [facility] Last Admin: 03/03/21 09:27 Dose: 20 mg Documented by: Heparin Sodium (Porcine) (Heparin 5,000 Unit/1 Ml Vial) 5,000 unit SUB-Q Q8HR [facility] Last Admin: 03/03/21 05:56 Dose: 5,000 unit Documented by: Levofloxacin (Levofloxacin 500 Mg Tab) 500 mg PO Q24HR ON [facility] OF [facility]; Protocol Stop: 03/07/21 20:59 Last Admin: 03/03/21 09:27 Dose: 500 mg Documented by: Magnesium Hydroxide (Magnesium Hydroxide (Mom) Oral Liqd Udc) 30 ml PO Q4H PRN PRN Reason: Constipation Methylprednisolone Sodium Succinate (Methylprednisolone Sod Succinate 40 Mg/1 Ml Inj) 40 mg IV Q8HR ON [facility] Last Admin: 03/03/21 05:56 Dose: 40 mg Documented by: Morphine Sulfate (Morphine 2 Mg/1 Ml Inj) 2 mg IV Q4H PRN PRN Reason: Pain, Moderate (4-6) Last Admin: 03/02/21 21:47 Dose: 2 mg Documented by: Morphine Sulfate (Morphine 4 Mg/1 Ml Inj) 4 mg IV Q4H PRN PRN Reason: Pain , Severe (7-10) Ondansetron HCl (Ondansetron 4 Mg/2 Ml Inj) 4 mg IV Q8H PRN PRN Reason: Nausea And Vomiting Sodium Chloride (Sodium Chloride 0.9% 10 Ml Flush Syringe) 10 ml IV BID [facility] Last Admin: 03/03/21 09:28 Dose: 10 ml Documented by: Sodium Chloride (Sodium Chloride 0.9% 10 Ml Flush Syringe) 10 ml IV PRN PRN PRN Reason: LINE FLUSH Physical Examination - Physical Exam Narrative exam: Physical Exam: Constitutional: Alert, cooperative. No acute distress Head, Ears, Nose: Normocephalic, atraumatic. External ears, nose normal Eyes: Conjunctivae/corneas clear. No icterus. No ptosis. Neck: Supple, no meningeal signs Oral: dentition fair, no thrush Cardiovascular: S1, S2 normal. Respiratory: Good air entry, clear to auscultation bilaterally GI: Soft, non-tender; bowel sounds normal. No peritoneal signs. Musculoskeletal: No pedal edema, no cyanosis. Skin: No rash or abscess Hem/Lymphatic: No palpable cervical or supraclavicular nodes. No lymphangitis Psych: Mood ok. Affect normal Neurological: Awake, alert, oriented. No gross abnormality - Constitutional Vitals: Vital Signs Temp Pulse Resp BP Pulse Ox 98.3 F 123 H 22 137/90 98 03/03/21 11:26 03/03/21 11:26 03/03/21 11:26 03/03/21 11:26 03/03/21 11:26 Temperature -Last 24 Hours Temperature 98.3 F Temperature 98.3 F Temperature 97.8 F Temperature 97.4 F Results - Labs CBC & Chem 7: 03/02/21 10:42 03/02/21 10:42 Assessment and Plan Cultures: Blood culture no growth so far Covid PCR: Negative A/P: 76-year-old male past medical history hypertension, COPD on 3 L oxygen at home presented with COPD exacerbation #COPD exacerbation: Management per pulmonary. Covid PCR negative, patient has been fully vaccinated. Normal procalcitonin, no need for antibiotics. Recs: -Stop Levaquin -Management per primary/pulmonary -Patient on high-dose steroids, can reasonably expect increased leukocytosis Thank you for the consult, we will sign off. Please call with questions or if patient develops fever MD Snehal [facility] O: [phone] F: [phone]
[2021-03-03] MEDS ORDERED: METOPROLOL TARTRATE 5 MG/5 ML INJ IV PRN (14:44)
--- NOTE | 2021-03-03 14:49 | Progress Note ---
Assessment and Plan Yiizt-zg-uhahrzu hypoxemic respiratory failure Acute exacerbation of chronic obstructive pulmonary disease coronary artery disease hypertension History of abdominal aortic aneurysm s/p repair. Hemoconcentration Acute kidney injury - COVID-19 PCR negative - complete empiric CAP AB's - continue to wean supplemental oxygen to keep O2 sats > 88-90% - continue bronchodilators (VAUGHN & LABA) with pulm hygiene per RT - continue systemic steroids with slow taper - continue inhaled corticosteroids - continue to avoid nephrotoxins, renally dose all medications - continue mobility protocols to prevent pressure ulcers - PT/OT as tolerated - Wound care per RN/WCT - continue accuchecks with glycemic control per SSI for target blood glucose < 180 mg/dL - continued tobacco abstinence strongly counseled at the bedside - home oxygen evaluation at discharge - GI & VTE prophylaxis - Flu & pneumovax per protocol - Pulmonary out patient follow up for PFTs and optimization of respiratory status - continue other care per attending / other consultants - prn analgesia per pain score ... re-evaluate in am & prn Subjective Date of service: 03/03/21 Principal diagnosis: Vjfub-bq-lodgybh hypoxemic respiratory failure; AE-COPD; CA D; HTN; CRISTINA Interval history: Patient is seen today for: Tmffu-si-pygxumj hypoxemic respiratory failure; AE- COPD; CAD; HTN; CRISTINA Seen and examined at bedside; 24hour events reviewed; nursing and respiratory care staff consulted; no adverse overnight events reported to me; resting in bed; Objective Vital Signs - 12hr 03/03/21 03/03/21 03/03/21 05:53 08:06 08:26 Temperature 97.8 F 98.3 F Pulse Rate 80 113 H Pulse Rate [ 131 H Bilateral] Respiratory 24 22 Rate Respiratory 24 Rate [Bilateral ] Blood Pressure 128/81 O2 Sat by Pulse 96 92 95 Oximetry 03/03/21 11:26 Temperature 98.3 F Pulse Rate 123 H Pulse Rate [ Bilateral] Respiratory 22 Rate Respiratory Rate [Bilateral ] Blood Pressure 137/90 O2 Sat by Pulse 98 Oximetry CBC and BMP: 03/02/21 10:42 03/02/21 10:42 ABG, PT/INR, D-dimer: PT/INR, D-dimer PT 13.4 Sec. (12.2-14.9) 03/02/21 10:42 INR 0.97 (0.87-1.13) 03/02/21 10:42 D-Dimer 2978.66 ng/mlDDU (0-234) H 03/01/21 21:40 Abnormal lab findings: Abnormal Labs 03/01/21 03/01/21 03/01/21 07:35 07:35 21:40 Hgb 15.3 H Hct MCV 97 H MCH 33 H RDW [place] % (Auto) 12.4 H Eos % (Auto) 4.7 H Lymph # (Auto) [place] # (Auto) 0.9 H Seg Neutrophils % D-Dimer 2978.66 H Creatinine 1.4 H Alkaline Phosphatase 167 H Lactate Dehydrogenase C-Reactive Protein 03/01/21 03/02/21 21:40 10:42 Hgb 15.7 H Hct 47.1 H MCV 98 H MCH 33 H RDW 15.3 H [place] % (Auto) 8.7 H Eos % (Auto) Lymph # (Auto) 0.9 L [place] # (Auto) Seg Neutrophils % 76.9 H D-Dimer Creatinine Alkaline Phosphatase Lactate Dehydrogenase 245 H C-Reactive Protein 3.90 H
--- NOTE | 2021-03-03 14:50 | Progress Note ---
Assessment and Plan Assessment and plan: --Sinus tachycardia; Current Visit: No Status: Acute Low-dose beta-blockers, probably secondary to albuterol treatment Supportive care, EKG show sinus rhythm, no arrhythmia Also check thyroid panel Consult cardiology if needed -- Acute exacerbation of chronic obstructive pulmonary disease (COPD) Current Visit: No Status: Acute Patient placed on nebulizing treatments and IV steroid. We will keep O2 saturation greater than equal to 93%. Consult placed to pulmonology for evaluation. --COVID-19 test negative Current Visit: Yes Status: Acute COVID-19 negative -- Elevated d-dimer Current Visit: Yes Status: Acute CTA chest negative for PE Check lower extremity venous Doppler --DVT prophylaxis: Current Visit: No Status: Acute subcutaneous heparin. -- Full code status Current Visit: Yes Status: Acute Plan to address problem: Patient is full code. Closely monitor the patient and adjust the management as needed Plan of care reviewed with the patient and his nurse History Interval history: I have seen and examined the patient at the bedside Patient's chart and medications reviewed Patient has mild tachycardia Sinus rhythm Denies any chest pain or shortness of breath Vital signs noted Hospitalist Physical - Constitutional Vitals: Temp Pulse Resp BP Pulse Ox 98.3 F 123 H 22 137/90 98 03/03/21 11:26 03/03/21 11:26 03/03/21 11:26 03/03/21 11:26 03/03/21 11:26 General appearance: Present: no acute distress, well-nourished, other (Sinus tachycardia) - EENT Eyes: Present: PERRL, EOM intact - Neck Neck: Present: supple, normal ROM - Respiratory Respiratory effort: normal Respiratory: bilateral: diminished, rhonchi, negative: rales, wheezing - Cardiovascular Rhythm: regular Heart Sounds: Present: S1 & S2 (Tachycardia) - Extremities Extremities: no ischemia, No edema - Abdominal General gastrointestinal: soft, non-tender, non-distended, normal bowel sounds - Integumentary Integumentary: Present: clear, warm - Psychiatric Psychiatric: appropriate mood/affect, cooperative - Neurologic Neurologic: CNII-XII intact, moves all extremities HEART Score - HEART Score Troponin: Troponin T < 0.010 ng/mL (0.00-0.029) 03/01/21 07:35 Results - Labs CBC & Chem 7: 03/02/21 10:42 03/02/21 10:42 Labs: Laboratory Last Values WBC 6.4 K/mm3 (4.5-11.0) 03/02/21 10:42 RBC 4.83 M/mm3 (3.65-5.03) 03/02/21 10:42 Hgb 15.7 gm/dl (11.8-15.2) H 03/02/21 10:42 Hct 47.1 % (35.5-45.6) H 03/02/21 10:42 MCV 98 fl (84-94) H 03/02/21 10:42 MCH 33 pg (28-32) H 03/02/21 10:42 MCHC 33 % (32-34) 03/02/21 10:42 RDW 15.3 % (13.2-15.2) H 03/02/21 10:42 Plt Count 200 K/mm3 (140-440) 03/02/21 10:42 Lymph % (Auto) 14.2 % (13.4-35.0) 03/02/21 10:42 [place] % (Auto) 8.7 % (0.0-7.3) H 03/02/21 10:42 Eos % (Auto) 0.0 % (0.0-4.3) 03/02/21 10:42 Baso % (Auto) 0.2 % (0.0-1.8) 03/02/21 10:42 Lymph # (Auto) 0.9 K/mm3 (1.2-5.4) L 03/02/21 10:42 [place] # (Auto) 0.6 K/mm3 (0.0-0.8) 03/02/21 10:42 Eos # (Auto) 0.0 K/mm3 (0.0-0.4) 03/02/21 10:42 Baso # (Auto) 0.0 K/mm3 (0.0-0.1) 03/02/21 10:42 Seg Neutrophils % 76.9 % (40.0-70.0) H 03/02/21 10:42 Seg Neutrophils # 4.9 K/mm3 (1.8-7.7) 03/02/21 10:42 PT 13.4 Sec. (12.2-14.9) 03/02/21 10:42 INR 0.97 (0.87-1.13) 03/02/21 10:42 D-Dimer 2978.66 ng/mlDDU (0-234) H 03/01/21 21:40 Sodium 140 mmol/L (137-145) 03/02/21 10:42 Potassium 4.5 mmol/L (3.6-5.0) 03/02/21 10:42 Chloride 103.3 mmol/L (98-107) 03/02/21 10:42 Carbon Dioxide 25 mmol/L (22-30) 03/02/21 10:42 Anion Gap 16 mmol/L 03/02/21 10:42 BUN 20 mg/dL (9-20) 03/02/21 10:42 Creatinine 1.3 mg/dL (0.8-1.3) 03/02/21 10:42 Estimated GFR > 60 ml/min 03/02/21 10:42 BUN/Creatinine Ratio 15 % 03/02/21 10:42 Glucose 90 mg/dL (75-100) 03/02/21 10:42 Calcium 9.1 mg/dL (8.4-10.2) 03/02/21 10:42 Ferritin 174.6 ng/mL (30.0-300.0) 03/01/21 21:40 Total Bilirubin 0.40 mg/dL (0.1-1.2) 03/01/21 07:35 AST 37 units/L (5-40) 03/01/21 07:35 ALT 29 units/L (7-56) 03/01/21 07:35 Alkaline Phosphatase 167 units/L (35-129) H 03/01/21 07:35 Lactate Dehydrogenase 245 units/L (91-180) H 03/01/21 21:40 Troponin T < 0.010 ng/mL (0.00-0.029) 03/01/21 07:35 C-Reactive Protein 3.90 mg/dL (0.00-1.30) H 03/01/21 21:40 NT-Pro-B Natriuret Pep 646.8 pg/mL (0-900) 03/01/21 07:35 Total Protein 7.0 g/dL (6.3-8.2) 03/01/21 07:35 Albumin 3.9 g/dL (3.9-5) 03/01/21 07:35 Albumin/Globulin Ratio 1.3 % 03/01/21 07:35 Procalcitonin < 0.05 ng/mL (<0.15) 03/01/21 21:40 Coronavirus (PCR) Negative (Negative) 03/01/21 08:07 Recinos/IV: Voiding Method Urinal Active Medications - Current Medications Current Medications: Generic Name Dose Route Start Last Admin Trade Name Freq PRN Reason Stop Dose Admin Acetaminophen 650 mg 03/01/21 22:23 Acetaminophen 325 Mg Tab PO Q4H PRN Pain MILD(1-3)/Fever >100.5/MARSHALL Al Hydrox/Mg Hydrox/Simethicone 15 ml 03/02/21 16:14 Alum-Mag Hydroxide-Simethicone [id number]/5ml Oral Liqd 30 Ml PO Q4H PRN Indigestion Albuterol/Ipratropium 1 ampul 03/02/21 21:30 03/03/21 08:26 Ipratropium/Albuterol Sulfate 3 Ml Ampul.Neb IH 1 ampul Q6HRT BJ Administration Arformoterol Tartrate 15 mcg 03/02/21 20:45 03/03/21 08:26 Arformoterol 15 Mcg/2 Ml Nebu IH 15 mcg Q12HRT BJ Administration Budesonide 0.5 mg 03/02/21 20:45 03/03/21 08:26 Budesonide 0.5 Mg/2 Ml Nebu IH 0.5 mg Q12HRT BJ Administration Famotidine 20 mg 03/03/21 10:00 03/03/21 09:27 Famotidine 20 Mg Tab PO 20 mg QDAY BJ Administration Heparin Sodium (Porcine) 5,000 unit 03/02/21 06:00 03/03/21 14:41 Heparin 5,000 Unit/1 Ml Vial SUB-Q 5,000 unit Q8HR BJ Administration Magnesium Hydroxide 30 ml 03/01/21 22:23 Magnesium Hydroxide (Mom) Oral Liqd Udc PO Q4H PRN Constipation Methylprednisolone Sodium Succinate 40 mg 03/02/21 06:00 03/03/21 14:42 Methylprednisolone Sod Succinate 40 Mg/1 Ml Inj IV 40 mg Q8HR BJ Administration Metoprolol Tartrate 5 mg 03/03/21 14:44 Metoprolol Tartrate 5 Mg/5 Ml Inj IV Q6HR PRN Tachyarrhythmias Metoprolol Tartrate 25 mg 03/03/21 15:00 Metoprolol Tartrate 25 Mg Tab PO BID BJ Morphine Sulfate 2 mg 03/01/21 22:23 03/02/21 21:47 Morphine 2 Mg/1 Ml Inj IV 2 mg Q4H PRN Administration Pain, Moderate (4-6) Morphine Sulfate 4 mg 03/01/21 22:23 Morphine 4 Mg/1 Ml Inj IV Q4H PRN Pain , Severe (7-10) Ondansetron HCl 4 mg 03/01/21 22:23 Ondansetron 4 Mg/2 Ml Inj IV Q8H PRN Nausea And Vomiting Sodium Chloride 10 ml 03/02/21 10:00 03/03/21 09:28 Sodium Chloride 0.9% 10 Ml Flush Syringe IV 10 ml BID BJ Administration Sodium Chloride 10 ml 03/01/21 22:23 Sodium Chloride 0.9% 10 Ml Flush Syringe IV PRN PRN LINE FLUSH
[2021-03-03] MEDS: METOPROLOL TARTRATE 25 MG TAB PO SCH ×2 (15:37→23:12)
[2021-03-03 16:55] LABS: Free T4 (Free Thyroxine) 1.39 ng/dL (0.76-1.46)
[2021-03-03] MEDS: MORPHINE 2 MG/1 ML INJ IV PRN (17:46)
[2021-03-03] MEDS: ACETAMINOPHEN 325 MG TAB PO PRN (23:21)
[2021-03-04] MEDS: IPRATROPIUM/ALBUTEROL SULFATE 3 ML AMPUL.NEB IH SCH ×4 (03:14→19:54)
--- NOTE | 2021-03-04 05:12 | Progress Note ---
Assessment and Plan Amecy-jz-ybqdcxk hypoxemic respiratory failure Acute exacerbation of chronic obstructive pulmonary disease coronary artery disease hypertension History of abdominal aortic aneurysm s/p repair. Hemoconcentration Acute kidney injury - complete empiric CAP AB, deescalate based on culture data and clinical response - continue to wean supplemental oxygen to keep SpO2 88-90% - continue bronchodilators (VAUGHN & LABA) with pulm hygiene per RT - continue systemic steroids with slow taper - continue inhaled corticosteroids - continue to avoid nephrotoxins, - continue mobility protocols to prevent pressure ulcers - PT/OT as tolerated - continue accuchecks with glycemic control per SSI for target blood glucose < 180 mg/dL - VTE prophylaxis -Influenza and pneumovax per protocol - Pulmonary out patient follow up for PFTs and optimization of respiratory status - continue other care per attending / other consultants - prn analgesia per pain score Subjective Date of service: 03/04/21 Principal diagnosis: Twhxw-tw-qbdfugh hypoxemic respiratory failure; AE-COPD; CAD; HTN; CRISTINA Interval history: Patient is seen today for: Rcxyy-tq-phmgkti hypoxemic respiratory failure; AE- COPD; CAD; HTN; CRISTINA Seen and examined at bedside; 24hour events reviewed; nursing and respiratory care staff consulted; no adverse overnight events reported to me; resting in bed; states he is feeling better. On home oxygen Mild shortness of breath,no fevers, no chills, no nausea or vomiting Objective - Exam Narrative Exam: Physical Exam: Constitutional: Alert, cooperative. No acute distress Head, Ears, Nose: Normocephalic, atraumatic. External ears, nose normal Eyes: Conjunctivae/corneas clear. No icterus. No ptosis. Neck: Supple, no meningeal signs Oral: dentition fair, no thrush Cardiovascular: S1, S2 normal. Respiratory: Good air entry, clear to auscultation bilaterally GI: Soft, non-tender; bowel sounds normal. No peritoneal signs. Musculoskeletal: No pedal edema, no cyanosis. Skin: No rash or abscess Hem/Lymphatic: No palpable cervical or supraclavicular nodes. No lymphangitis Psych: Mood ok. Affect normal Neurological: Awake, alert, oriented. No gross abnormality Vital Signs - 12hr 03/03/21 03/03/21 03/03/21 19:31 22:20 22:57 Temperature 98.2 F Pulse Rate 86 Pulse Rate [ 73 Bilateral] Respiratory 20 Rate Respiratory 20 Rate [Bilateral ] Blood Pressure 135/92 O2 Sat by Pulse 95 98 Oximetry 03/03/21 03/03/21 03/03/21 22:58 23:12 23:21 Temperature 97.8 F Pulse Rate 75 86 Pulse Rate [ Bilateral] Respiratory 22 22 Rate Respiratory Rate [Bilateral ] Blood Pressure 141/94 135/92 O2 Sat by Pulse 96 Oximetry 03/04/21 03:18 Temperature Pulse Rate Pulse Rate [ 78 Bilateral] Respiratory Rate Respiratory 18 Rate [Bilateral ] Blood Pressure O2 Sat by Pulse Oximetry CBC and BMP: 03/02/21 10:42 03/02/21 10:42 ABG, PT/INR, D-dimer: PT/INR, D-dimer PT 13.4 Sec. (12.2-14.9) 03/02/21 10:42 INR 0.97 (0.87-1.13) 03/02/21 10:42 D-Dimer 2978.66 ng/mlDDU (0-234) H 03/01/21 21:40 Abnormal lab findings: Abnormal Labs 03/01/21 03/01/21 03/01/21 07:35 07:35 21:40 Hgb 15.3 H Hct MCV 97 H MCH 33 H RDW [place] % (Auto) 12.4 H Eos % (Auto) 4.7 H Lymph # (Auto) [place] # (Auto) 0.9 H Seg Neutrophils % D-Dimer 2978.66 H Creatinine 1.4 H Alkaline Phosphatase 167 H Lactate Dehydrogenase C-Reactive Protein 03/01/21 03/02/21 21:40 10:42 Hgb 15.7 H Hct 47.1 H MCV 98 H MCH 33 H RDW 15.3 H [place] % (Auto) 8.7 H Eos % (Auto) Lymph # (Auto) 0.9 L [place] # (Auto) Seg Neutrophils % 76.9 H D-Dimer Creatinine Alkaline Phosphatase Lactate Dehydrogenase 245 H C-Reactive Protein 3.90 H Chest x-ray: image reviewed CT scan - chest: image reviewed Additional Studies: COVID-19 negative CTA chest negative for PE Lower extremity venous Doppler negative for DVT Allied health notes reviewed: nursing
[2021-03-04] MEDS: MORPHINE 2 MG/1 ML INJ IV PRN ×2 (06:09→20:21)
[2021-03-04] MEDS: HEPARIN 5,000 UNIT/1 ML VIAL SUB-Q SCH ×4 (06:09→22:33)
[2021-03-04] MEDS: methylPREDNISolone Sod Succinate 40 MG/1 ML INJ IV SCH ×3 (06:09→20:20)
[2021-03-04] MEDS: ARFORMOTEROL 15 MCG/2 ML NEBU IH SCH ×2 (08:04→19:55)
[2021-03-04] MEDS: BUDESONIDE 0.5 MG/2 ML NEBU IH SCH ×2 (08:05→19:54)
[2021-03-04] MEDS: FAMOTIDINE 20 MG TAB PO SCH (10:38)
[2021-03-04] MEDS: METOPROLOL TARTRATE 25 MG TAB PO SCH ×3 (10:38→22:00)
--- NOTE | 2021-03-04 16:09 | Progress Note ---
Assessment and Plan Assessment and plan: --Sinus tachycardia; Current Visit: No Status: Acute Low-dose beta-blockers, probably secondary to albuterol treatment Supportive care, EKG show sinus rhythm, no arrhythmia Also check thyroid panel Consult cardiology if needed -- Acute exacerbation of chronic obstructive pulmonary disease (COPD) Current Visit: No Status: Acute Patient placed on nebulizing treatments and IV steroid. We will keep O2 saturation greater than equal to 93%. Pulmonary evaluation recommendation noted and appreciated --COVID-19 test negative Current Visit: Yes Status: Acute COVID-19 negative -- Elevated d-dimer Current Visit: Yes Status: Acute CTA chest negative for PE Check lower extremity venous Doppler --DVT prophylaxis: Current Visit: No Status: Acute subcutaneous heparin. -- Full code status Current Visit: Yes Status: Acute Plan to address problem: Patient is full code. Closely monitor the patient and adjust the management as needed Plan of care reviewed with the patient and his nurse Increase ambulation Possible discharge in 1 to 2 days if stable History Interval history: I have seen and examined the patient at the bedside Patient's chart and medications reviewed Patient feels better, no new complaints Mild shortness of breath, is elevated D-dimers, COVID-19 negative CTA chest negative for PE Lower extremity venous Doppler negative for DVT Hospitalist Physical - Constitutional Vitals: Temp Pulse Resp BP Pulse Ox 98.7 F 82 20 138/88 97 03/04/21 08:20 03/04/21 08:20 03/04/21 11:00 03/04/21 08:20 03/04/21 11:00 General appearance: Present: no acute distress, well-nourished, other (Sinus tachycardia) - EENT Eyes: Present: PERRL, EOM intact - Neck Neck: Present: supple, normal ROM - Respiratory Respiratory effort: normal Respiratory: bilateral: diminished, negative: rales, rhonchi, wheezing - Cardiovascular Rhythm: regular Heart Sounds: Present: S1 & S2 - Extremities Extremities: no ischemia, No edema - Abdominal General gastrointestinal: soft, non-tender, non-distended, normal bowel sounds - Integumentary Integumentary: Present: clear, warm - Psychiatric Psychiatric: appropriate mood/affect, cooperative - Neurologic Neurologic: CNII-XII intact, moves all extremities HEART Score - HEART Score Troponin: Troponin T < 0.010 ng/mL (0.00-0.029) 03/01/21 07:35 Results - Labs CBC & Chem 7: 03/02/21 10:42 03/02/21 10:42 Labs: Laboratory Last Values WBC 6.4 K/mm3 (4.5-11.0) 03/02/21 10:42 RBC 4.83 M/mm3 (3.65-5.03) 03/02/21 10:42 Hgb 15.7 gm/dl (11.8-15.2) H 03/02/21 10:42 Hct 47.1 % (35.5-45.6) H 03/02/21 10:42 MCV 98 fl (84-94) H 03/02/21 10:42 MCH 33 pg (28-32) H 03/02/21 10:42 MCHC 33 % (32-34) 03/02/21 10:42 RDW 15.3 % (13.2-15.2) H 03/02/21 10:42 Plt Count 200 K/mm3 (140-440) 03/02/21 10:42 Lymph % (Auto) 14.2 % (13.4-35.0) 03/02/21 10:42 [place] % (Auto) 8.7 % (0.0-7.3) H 03/02/21 10:42 Eos % (Auto) 0.0 % (0.0-4.3) 03/02/21 10:42 Baso % (Auto) 0.2 % (0.0-1.8) 03/02/21 10:42 Lymph # (Auto) 0.9 K/mm3 (1.2-5.4) L 03/02/21 10:42 [place] # (Auto) 0.6 K/mm3 (0.0-0.8) 03/02/21 10:42 Eos # (Auto) 0.0 K/mm3 (0.0-0.4) 03/02/21 10:42 Baso # (Auto) 0.0 K/mm3 (0.0-0.1) 03/02/21 10:42 Seg Neutrophils % 76.9 % (40.0-70.0) H 03/02/21 10:42 Seg Neutrophils # 4.9 K/mm3 (1.8-7.7) 03/02/21 10:42 PT 13.4 Sec. (12.2-14.9) 03/02/21 10:42 INR 0.97 (0.87-1.13) 03/02/21 10:42 D-Dimer 2978.66 ng/mlDDU (0-234) H 03/01/21 21:40 Sodium 140 mmol/L (137-145) 03/02/21 10:42 Potassium 4.5 mmol/L (3.6-5.0) 03/02/21 10:42 Chloride 103.3 mmol/L (98-107) 03/02/21 10:42 Carbon Dioxide 25 mmol/L (22-30) 03/02/21 10:42 Anion Gap 16 mmol/L 03/02/21 10:42 BUN 20 mg/dL (9-20) 03/02/21 10:42 Creatinine 1.3 mg/dL (0.8-1.3) 03/02/21 10:42 Estimated GFR > 60 ml/min 03/02/21 10:42 BUN/Creatinine Ratio 15 % 03/02/21 10:42 Glucose 90 mg/dL (75-100) 03/02/21 10:42 Calcium 9.1 mg/dL (8.4-10.2) 03/02/21 10:42 Ferritin 174.6 ng/mL (30.0-300.0) 03/01/21 21:40 Total Bilirubin 0.40 mg/dL (0.1-1.2) 03/01/21 07:35 AST 37 units/L (5-40) 03/01/21 07:35 ALT 29 units/L (7-56) 03/01/21 07:35 Alkaline Phosphatase 167 units/L (35-129) H 03/01/21 07:35 Lactate Dehydrogenase 245 units/L (91-180) H 03/01/21 21:40 Troponin T < 0.010 ng/mL (0.00-0.029) 03/01/21 07:35 C-Reactive Protein 3.90 mg/dL (0.00-1.30) H 03/01/21 21:40 NT-Pro-B Natriuret Pep 646.8 pg/mL (0-900) 03/01/21 07:35 Total Protein 7.0 g/dL (6.3-8.2) 03/01/21 07:35 Albumin 3.9 g/dL (3.9-5) 03/01/21 07:35 Albumin/Globulin Ratio 1.3 % 03/01/21 07:35 Procalcitonin < 0.05 ng/mL (<0.15) 03/01/21 21:40 TSH 1.100 mlU/mL (0.270-4.200) 03/03/21 16:04 Free T4 1.39 ng/dL (0.76-1.46) 03/03/21 16:04 Coronavirus (PCR) Negative (Negative) 03/01/21 08:07 Recinos/IV: Voiding Method Toilet Active Medications - Current Medications Current Medications: Generic Name Dose Route Start Last Admin Trade Name Freq PRN Reason Stop Dose Admin Acetaminophen 650 mg 03/01/21 22:23 03/03/21 23:21 Acetaminophen 325 Mg Tab PO 650 mg Q4H PRN Administration Pain MILD(1-3)/Fever >100.5/MARSHALL Al Hydrox/Mg Hydrox/Simethicone 15 ml 03/02/21 16:14 Alum-Mag Hydroxide-Simethicone [id number]/5ml Oral Liqd 30 Ml PO Q4H PRN Indigestion Albuterol/Ipratropium 1 ampul 03/02/21 21:30 03/04/21 14:04 Ipratropium/Albuterol Sulfate 3 Ml Ampul.Neb IH 1 ampul Q6HRT BJ Administration Arformoterol Tartrate 15 mcg 03/02/21 20:45 03/04/21 08:04 Arformoterol 15 Mcg/2 Ml Nebu IH 15 mcg Q12HRT BJ Administration Budesonide 0.5 mg 03/02/21 20:45 03/04/21 08:05 Budesonide 0.5 Mg/2 Ml Nebu IH 0.5 mg Q12HRT BJ Administration Famotidine 20 mg 03/03/21 10:00 03/04/21 10:38 Famotidine 20 Mg Tab PO 20 mg QDAY BJ Administration Heparin Sodium (Porcine) 5,000 unit 03/02/21 06:00 03/04/21 14:21 Heparin 5,000 Unit/1 Ml Vial SUB-Q 5,000 unit Q8HR BJ Administration Magnesium Hydroxide 30 ml 03/01/21 22:23 Magnesium Hydroxide (Mom) Oral Liqd Udc PO Q4H PRN Constipation Methylprednisolone Sodium Succinate 40 mg 03/02/21 06:00 03/04/21 14:21 Methylprednisolone Sod Succinate 40 Mg/1 Ml Inj IV 40 mg Q8HR BJ Administration Metoprolol Tartrate 5 mg 03/03/21 14:44 Metoprolol Tartrate 5 Mg/5 Ml Inj IV Q6HR PRN Tachyarrhythmias Metoprolol Tartrate 25 mg 03/03/21 15:00 03/04/21 10:38 Metoprolol Tartrate 25 Mg Tab PO 25 mg BID BJ Administration Morphine Sulfate 2 mg 03/01/21 22:23 03/04/21 06:09 Morphine 2 Mg/1 Ml Inj IV 2 mg Q4H PRN Administration Pain, Moderate (4-6) Morphine Sulfate 4 mg 03/01/21 22:23 Morphine 4 Mg/1 Ml Inj IV Q4H PRN Pain , Severe (7-10) Ondansetron HCl 4 mg 03/01/21 22:23 Ondansetron 4 Mg/2 Ml Inj IV Q8H PRN Nausea And Vomiting Sodium Chloride 10 ml 03/02/21 10:00 03/04/21 10:38 Sodium Chloride 0.9% 10 Ml Flush Syringe IV 10 ml BID BJ Administration Sodium Chloride 10 ml 03/01/21 22:23 03/04/21 06:15 Sodium Chloride 0.9% 10 Ml Flush Syringe IV 10 ml PRN PRN Administration LINE FLUSH
--- NOTE | 2021-03-04 16:12 | Vascular Lab Report ---
DUPLEX DOPPLER LOWER EXTREMITY VEINS, BILATERAL INDICATION: Elevated D-dimers/rule out DVT. Leg swelling. TECHNIQUE: Duplex doppler imaging was performed through the veins of both lower extremities using venous ellen alicia and other maneuvers. COMPARISON: None available. FINDINGS: Right Common femoral vein: Negative. Right Superficial femoral vein: Negative. Right Popliteal vein: Negative. Right Calf veins: Negative. Left Common femoral vein: Negative. Left Superficial femoral vein: Negative. Left Popliteal vein: Negative. Left Calf veins: Negative. Additional findings: None. IMPRESSION: Negative for DVT. Signer Name: Luan Marsh MD Signed: 03/04/2021 4:07 PM Workstation Name: [id number]
[2021-03-05] MEDS: IPRATROPIUM/ALBUTEROL SULFATE 3 ML AMPUL.NEB IH SCH ×3 (04:03→13:47)
[2021-03-05] MEDS: methylPREDNISolone Sod Succinate 40 MG/1 ML INJ IV SCH ×2 (05:34→05:44)
[2021-03-05] MEDS: ACETAMINOPHEN 325 MG TAB PO PRN (05:43)
[2021-03-05] MEDS: HEPARIN 5,000 UNIT/1 ML VIAL SUB-Q SCH (05:44)
[2021-03-05 08:23] VITALS: BP 122/103
[2021-03-05] MEDS: ARFORMOTEROL 15 MCG/2 ML NEBU IH SCH (09:15)
[2021-03-05] MEDS: BUDESONIDE 0.5 MG/2 ML NEBU IH SCH (09:16)
[2021-03-05] MEDS: FAMOTIDINE 20 MG TAB PO SCH (10:39)
[2021-03-05] MEDS: METOPROLOL TARTRATE 25 MG TAB PO SCH (10:39)
--- NOTE | 2021-03-05 13:06 | Discharge Summary ---
Providers - Providers Date of Admission: 03/02/21 12:00 Date of discharge: 03/05/21 Attending physician: ABRIL BAKER 03/01/21 22:23 Consult to Physician [CONS] Routine Comment: Consulting Provider: BRINDA HOLLAND Physician Instructions: Reason For Exam: Dyspnea, hypoxia R/O COVID-19 03/02/21 01:13 Consult to Physician [CONS] Routine Comment: Consulting Provider: JACOB STEPHENS Physician Instructions: Reason For Exam: COPD Exac, Hypoxia, R/O Covid-19 Primary care physician: CASTING CHIPPER Hospitalization Condition: Stable Hospital course: --Sinus tachycardia; Current Visit: No Status: Acute Low-dose beta-blockers, probably secondary to albuterol treatment Supportive care, EKG show sinus rhythm, no arrhythmia Also check thyroid panel Consult cardiology if needed --History of hypertension --History of dyslipidemia - Acute exacerbation of chronic obstructive pulmonary disease (COPD) Current Visit: No Status: Acute Patient placed on nebulizing treatments and IV steroid. We will keep O2 saturation greater than equal to 93%. Pulmonary evaluation recommendation noted and appreciated --COVID-19 test negative Current Visit: Yes Status: Acute COVID-19 negative -- Elevated d-dimer Current Visit: Yes Status: Acute CTA chest negative for PE Check lower extremity venous Doppler Disposition: - TO HOME OR SELFCARE Final Discharge Diagnosis (Prints w/discharge instructions): Sinus tachycard ia/resolved. Acute exacerbation of COPD[chronic obstructive pulmonary disease]. Home oxygen dependent. COVID-19 test negative. Elevated D-dimers[negative for PE and DVT. Acute on chronic respiratory failure. History of hypertension. History of dyslipidemia Time spent for discharge: 35 min Core Measure Documentation - Palliative Care Palliative Care/ Comfort Measures: Not Applicable - Core Measures Any of the following diagnoses?: none Exam - Constitutional Vitals: Temp Pulse Resp BP Pulse Ox 98.0 F 107 H 18 122/103 95 03/05/21 04:38 03/05/21 09:16 03/05/21 09:16 03/05/21 08:18 03/05/21 09:17 General appearance: Present: no acute distress, well-nourished - EENT Eyes: Present: PERRL, EOM intact - Neck Neck: Present: supple, normal ROM - Respiratory Respiratory effort: normal Respiratory: bilateral: diminished, negative: rales, rhonchi, wheezing - Cardiovascular Rhythm: regular Heart Sounds: Present: S1 & S2 - Extremities Extremities: no ischemia, No edema - Abdominal General gastrointestinal: Present: soft, non-tender, non-distended, normal bowel sounds - Integumentary Integumentary: Present: clear, warm - Musculoskeletal Musculoskeletal: strength equal bilaterally - Psychiatric Psychiatric: appropriate mood/affect, cooperative - Neurologic Neurologic: CNII-XII intact, moves all extremities Plan Activity: no restrictions Diet: other (Cardiac diet) Additional Instructions: Continue home oxygen as before. If you have worsening symptoms contact MD or go to emergency room as needed. Advised to see private/[facility] pulmonary per schedule. Advised to see private/[facility] sand hauler for further evaluation of bruises on your legs and elevated D-dimers Follow up with: PRIMARY CARE, [Primary Care Provider] - 3-5 Days
--- NOTE | 2021-03-05 13:28 | Electrocardiograph Report ---
[facility] Test Date: 2021-03-03 Test Time: 12:47:30 Pat Name: ANN FALK Department: Room: A464 1 Gender: M Superintendent Circus: VIV : 1945 Requested By: ABRIL BAKER Order Number: [id number] Reading MD: Claudette Light Measurements Intervals [place] Rate: 117 P: 85 ID: [id number] QRS: 99 QRSD: 100 T: 242 QT: 335 QTc: 468 Interpretive Statements Sinus tachycardia Ventricular premature complex Right axis deviation Compared to ECG 03/01/2021 07:23:42 Ventricular premature complex(es) now present Electronically Signed On 03-05-2021 13:27:46 EDT by Claudette Light
--- NOTE | 2021-03-06 14:29 | Electrocardiograph Report ---
[facility] Test Date: 2021-03-04 Test Time: 00:38:23 Pat Name: ANN FALK Department: Room: A464 1 Gender: M Accredited Pharmacy Technician: JOVANNY : 1945 Requested By: ABRIL BAKER Order Number: [id number] Reading MD: Claudette Light Measurements Intervals [place] Rate: 118 P: NE: QRS: 99 QRSD: 157 T: 46 QT: 371 QTc: 518 Interpretive Statements Junctional tachycardia with retrograde P waves Nonspecific intraventricular conduction delay Minimal ST depression, diffuse leads Prolonged QT interval Compared to ECG 03/03/2021 12:47:30 Junctional tachycardia has replaced sinus rhythm Electronically Signed On 03-06-2021 14:28:39 EDT by Claudette Light
== END 2021-03-05 15:56 | disposition home or self-care (01) | DRG 189 ==
LOC: ED 07:09 → 3A 21:37 → OBSVTOIN 03-02 12:00 → 4A 03-02 19:38
PROVIDERS: ADMIT Internal Medicine Geriatric Medicine; ATTEND Internal Medicine
PROC: 3E0234Z Introduction of Serum, Toxoid and Vaccine into Muscle, Percutaneous Approach (ICD-10-PCS; principal; 2021-03-03)
PROC: 4A033R1 Measurement of Arterial Saturation, Peripheral, Percutaneous Approach (ICD-10-PCS; 2021-03-04)
DX: J96.21 Acute and chronic respiratory failure with hypoxia (principal); N17.9 Acute kidney failure, unspecified; J44.1 Chronic obstructive pulmonary disease with (acute) exacerbation; Z20.822 Contact with and (suspected) exposure to COVID-19; I10 Essential (primary) hypertension; I25.10 Atherosclerotic heart disease of native coronary artery without angina pectoris; R00.0 Tachycardia, unspecified; Z23 Encounter for immunization; I25.2 Old myocardial infarction; Z95.5 Presence of coronary angioplasty implant and graft; Z99.81 Dependence on supplemental oxygen
CPT/HCPCS: 36415; 36600; 71046; 71275; 80048; 80053; 82728; 82805; 82947; 83615; 83880; 84145; 84439; 84443; 84484; 85025; 85379; 85610; 86140; 90732; 93005; 93970; 94640; 94760; 96374; G0378; J1644; J2270; J2920; J2930; J3475; Q9967; U0003

== ENCOUNTER 2021-03-18 06:28 | Emergency (ER) | payer MEDICARE, OTHER ==
[2021-03-18] MEDS ORDERED: IPRATROPIUM/ALBUTEROL SULFATE 3 ML AMPUL.NEB IH ONE (08:19)
[2021-03-18] MEDS ORDERED: methylPREDNISolone Sod Succinate 125 MG/2 ML INJ IV ONE (08:19)
[2021-03-18] MEDS ORDERED: BENZONATATE 100 MG CAP PO ONE (08:19)
--- NOTE | 2021-03-18 08:25 | Emergency Department Report ---
ED Shortness of Breath HPI - General Chief Complaint: Dyspnea/Respdistress Stated Complaint: WEAKNESS Time Seen by Provider: 03/18/21 07:55 Source: patient, old records reviewed Mode of arrival: Stretcher Limitations: No Limitations - History of Present Illness Initial Comments: 76-year-old male with a past medical history of COPD with 3 L oxygen dependence, CAD with 9 stents, hypertension, abdominal annual status post repair presents to the hospital with complaints of shortness of breath secondary to COPD for the last 4 to 5 days. Patient complains of dry cough, wheezing, increased dyspnea on exertion. No improvement with home nebulizer treatment. Patient denies previous intubations, calf tenderness, leg edema, or chest pain. Patient did receive both doses of his Moderna Covid vaccine. He complains of loss of sense of taste and smell and hoarseness without throat pain. No fever reported however positive chills. Previous medical record reviewed. Patient is Medicare March 01 until March 05 for COPD exacerbation. Had a negative Covid test performed on March 01, had a CTA of the chest on March 02 - for acute per embolism but positive for moderate emphysema, have bilateral leg Dopplers March 04 that were negative - Related Data Home Medications Medication Instructions Recorded Confirmed Last Taken Aspirin EC [Halfprin EC] 81 mg PO QDAY 05/17/15 03/02/21 08/11/17 AtorvaSTATin [Lipitor] 40 mg PO QDAY 05/17/15 03/02/21 08/11/17 Bisoprolol Fumarate [Zebeta] 10 mg PO DAILY 05/17/15 03/02/21 08/11/17 Budesoni/Formotero 160-4.5(Nf) 2 puff IH BID 05/17/15 03/02/21 08/11/17 [Symbicort 160-4.5 (Nf)] Docusate Sodium [Colace CAP] 100 mg PO QDAY PRN 05/17/15 03/02/21 08/11/17 Omeprazole [PriLOSEC] 20 mg PO QDAY 05/17/15 03/02/21 08/11/17 PARoxetine HCL [PARoxetine] 40 mg PO QAM 05/17/15 03/02/21 08/11/17 Prazosin 2 mg PO QHS 05/17/15 03/02/21 08/11/17 SEROquel 100 mg PO QHS 08/13/17 03/02/21 08/11/17 22:00 100 mg Previous Rx's Medication Instructions Recorded Last Taken Type Albuterol Mdi (or & Nicu Only) 1 puff IH Q6HR PRN #1 inha 05/20/15 08/11/17 Rx [ProAir HFA Inhaler] Budesonide [Pulmicort Respules] 0.5 mg IH Q12HR #30 nebu 05/20/15 08/11/17 Rx Ipratropium/Albuterol Sulfate 1 ampul IH Q6HR #30 ampul.neb 05/20/15 08/11/17 Rx [DUONEB *Not for PRN Use*] Clopidogrel Bisulfate [Plavix] 75 mg PO QDAY #30 tablet 08/15/17 Unknown Rx ISOSORBIDE MONOnitrate [Imdur ER] 30 mg PO DAILY #30 tablet 08/15/17 Unknown Rx oxyCODONE /ACETAMINOPHEN [Percocet 1 tab PO BID PRN #10 tablet 03/05/21 Unknown Rx 5/325] Benzonatate [Tessalon Perles] 100 mg PO Q8HR PRN #20 capsule 03/18/21 Unknown Rx Prednisone [predniSONE 10 mg 10 mg PO .TAPER #1 tab.ds.pk 03/18/21 Unknown Rx (6-Day Pack, 21 Tabs)] Allergies Allergy/AdvReac Type Severity Reaction Status Date / Time No Known Allergies Allergy Verified 03/01/21 07:10 ED Review of Systems ROS: Stated complaint: WEAKNESS Other details as noted in HPI Comment: All other systems reviewed and negative ED Past Medical Hx - Past Medical History Previous Medical History?: Yes Hx Hypertension: Yes Hx Heart Attack/AMI: Yes (2015) Hx Congestive Heart Failure: No Hx COPD: Yes Additional medical history: Anuerism Abd, cardia stents x2 - Surgical History Past Surgical History?: Yes Hx Coronary Stent: Yes (2015) Additional Surgical History: Anuerism repair. - Social History Smoking Status: Former Smoker Substance Use Type: None - Medications Home Medications: Home Medications Medication Instructions Recorded Confirmed Last Taken Type Aspirin EC [Halfprin EC] 81 mg PO QDAY 05/17/15 03/02/21 08/11/17 History AtorvaSTATin [Lipitor] 40 mg PO QDAY 05/17/15 03/02/21 08/11/17 History Bisoprolol Fumarate [Zebeta] 10 mg PO DAILY 05/17/15 03/02/21 08/11/17 History Budesoni/Formotero 160-4.5(Nf) 2 puff IH BID 05/17/15 03/02/21 08/11/17 History [Symbicort 160-4.5 (Nf)] Docusate Sodium [Colace CAP] 100 mg PO QDAY PRN 05/17/15 03/02/21 08/11/17 History Omeprazole [PriLOSEC] 20 mg PO QDAY 05/17/15 03/02/21 08/11/17 History PARoxetine HCL [PARoxetine] 40 mg PO QAM 05/17/15 03/02/21 08/11/17 History Prazosin 2 mg PO QHS 05/17/15 03/02/21 08/11/17 History Albuterol Mdi (or & Nicu Only) 1 puff IH Q6HR PRN #1 inha 05/20/15 03/02/21 Rx [ProAir HFA Inhaler] Budesonide [Pulmicort Respules] 0.5 mg IH Q12HR #30 nebu 05/20/15 03/02/21 08/11/17 Rx Ipratropium/Albuterol Sulfate 1 ampul IH Q6HR #30 ampul.neb 05/20/15 03/02/21 08/11/17 Rx [DUONEB *Not for PRN Use*] SEROquel 100 mg PO QHS 08/13/17 03/02/21 08/11/17 22:00 History 100 mg Clopidogrel Bisulfate [Plavix] 75 mg PO QDAY #30 tablet 08/15/17 03/02/21 Unknown Rx ISOSORBIDE MONOnitrate [Imdur ER] 30 mg PO DAILY #30 tablet 08/15/17 03/02/21 Unknown Rx oxyCODONE /ACETAMINOPHEN [Percocet 1 tab PO BID PRN #10 tablet 03/05/21 Unknown Rx 5/325] Benzonatate [Tessalon Perles] 100 mg PO Q8HR PRN #20 capsule 03/18/21 Unknown Rx Prednisone [predniSONE 10 mg 10 mg PO .TAPER #1 tab.ds.pk 03/18/21 Unknown Rx (6-Day Pack, 21 Tabs)] ED Physical Exam - General Limitations: No Limitations - Other Other exam information: General: No acute distress Head: Atraumatic Eyes: normal appearance ENT: Moist mucous membranes Neck: Normal appearance, no midline tenderness Chest: Diminished breath sounds bilaterally with mild rhonchi CV: Regular rate and rhythm Abdomen: Soft, normal bowel sounds, nontender, nondistended, no rebound or guarding Back: Normal inspection Extremity: Normal inspection, full range of motion, no calf tenderness or leg edema Neuro: Alert O x 3, no facial asymmetry, speech clear, no gross motor sensory deficit Psych: Appropriate behavior Skin: No rash ED Course Vital Signs 03/18/21 03/18/21 03/18/21 07:59 08:00 08:16 Temperature 99.0 F Pulse Rate 78 79 82 Pulse Rate [ Anterior Bilateral Throughout] Respiratory 26 H 25 H 21 Rate Respiratory Rate [Anterior Bilateral Throughout] Blood Pressure 113/59 113/59 Blood Pressure 113/59 [Left] O2 Sat by Pulse 97 98 96 Oximetry 03/18/21 03/18/21 03/18/21 08:24 08:30 09:00 Temperature Pulse Rate 78 Pulse Rate [ 81 Anterior Bilateral Throughout] Respiratory 26 H 26 H Rate Respiratory 16 Rate [Anterior Bilateral Throughout] Blood Pressure 115/71 109/62 Blood Pressure [Left] O2 Sat by Pulse 97 84 Oximetry 03/18/21 03/18/21 03/18/21 09:16 09:30 09:46 Temperature Pulse Rate 86 86 86 Pulse Rate [ Anterior Bilateral Throughout] Respiratory 14 16 14 Rate Respiratory Rate [Anterior Bilateral Throughout] Blood Pressure 109/62 116/66 116/66 Blood Pressure [Left] O2 Sat by Pulse 93 96 Oximetry 03/18/21 03/18/21 03/18/21 10:00 10:16 10:30 Temperature Pulse Rate 90 88 89 Pulse Rate [ Anterior Bilateral Throughout] Respiratory 17 29 H 15 Rate Respiratory Rate [Anterior Bilateral Throughout] Blood Pressure 116/65 109/86 116/65 Blood Pressure [Left] O2 Sat by Pulse 79 L 96 100 Oximetry 03/18/21 03/18/21 03/18/21 11:00 11:30 11:58 Temperature Pulse Rate 94 H 96 H Pulse Rate [ 97 H Anterior Bilateral Throughout] Respiratory 24 20 Rate Respiratory 18 Rate [Anterior Bilateral Throughout] Blood Pressure 108/58 105/57 Blood Pressure [Left] O2 Sat by Pulse 95 91 89 Oximetry 03/18/21 03/18/21 12:00 12:19 Temperature Pulse Rate 92 H 99 H Pulse Rate [ Anterior Bilateral Throughout] Respiratory 25 H 18 Rate Respiratory Rate [Anterior Bilateral Throughout] Blood Pressure 122/78 Blood Pressure 122/78 [Left] O2 Sat by Pulse 96 92 Oximetry ED Medical Decision Making - Lab Data Result diagrams: 03/18/21 08:32 03/18/21 08:32 Lab Results 03/18/21 03/18/21 Range/Units 08:32 08:32 WBC 12.7 H (4.5-11.0) K/mm3 RBC 4.54 (3.65-5.03) M/mm3 Hgb 14.7 (11.8-15.2) gm/dl Hct 43.4 (35.5-45.6) % MCV 96 H (84-94) fl MCH 32 (28-32) pg MCHC 34 (32-34) % RDW 15.4 H (13.2-15.2) % Plt Count 215 (140-440) K/mm3 Lymph % (Auto) 4.5 L (13.4-35.0) % [place] % (Auto) 6.0 (0.0-7.3) % Eos % (Auto) 1.1 (0.0-4.3) % Baso % (Auto) 0.5 (0.0-1.8) % Lymph # (Auto) 0.6 L (1.2-5.4) K/mm3 [place] # (Auto) 0.8 (0.0-0.8) K/mm3 Eos # (Auto) 0.1 (0.0-0.4) K/mm3 Baso # (Auto) 0.1 (0.0-0.1) K/mm3 Seg Neutrophils % 87.9 H (40.0-70.0) % Seg Neutrophils # 11.2 H (1.8-7.7) K/mm3 Sodium 136 L (137-145) mmol/L Potassium 4.8 (3.6-5.0) mmol/L Chloride 103.0 (98-107) mmol/L Carbon Dioxide 25 (22-30) mmol/L Anion Gap 13 mmol/L BUN 18 (9-20) mg/dL Creatinine 1.5 H (0.8-1.3) mg/dL Estimated GFR 55 ml/min BUN/Creatinine Ratio 12 % Glucose 80 (75-100) mg/dL Calcium 9.2 (8.4-10.2) mg/dL - Medical Decision Making 76-year male with a past medical history of COPD with 3 L O2 dependence presents to the hospital planing of shortness of breath, cough, and chills without documented fever. Chest x-ray negative for pneumonia. Patient vital signs within normal range while on 3 L of oxygen. At room air patient saturation 89% which is likely his baseline given his O2 dependence. Patient had a recent admission here earlier this month in which she had extensive work-up including CT angiogram chest negative for pneumonia or pulmonary embolus, bilateral Dopplers of the lower extremities negative for DVT, and a negative Covid test. Patient shortness of breath improved here with bronchodilators and steroids. Cough improved with Tessalon Perles. Patient reports feeling better at time of discharge. Patient be discharged to follow-up PMD and given referral for a mercury cell cleaner. Outpatient meds will be provided. Critical Care Time: No Critical care attestation.: If time is entered above; I have spent that time in minutes in the direct care of this critically ill patient, excluding procedure time. ED Disposition Clinical Impression: COPD with acute exacerbation, Emphysema lung, Oxygen dependent Disposition: 01 HOME / SELF CARE / HOMELESS Is pt being admited?: No Does the pt Need Aspirin: No Condition: Stable Instructions: Chronic Obstructive Pulmonary Disease Exacerbation, Chronic Obstructive Pulmonary Disease (ED) Additional Instructions: Take the medication as prescribed. Follow-up with your doctor or doctor/clinic provided. Return if symptoms worsen as indicated by your discharge instructions. Prescriptions: Prednisone [predniSONE 10 mg (6-Day Pack, 21 Tabs)] 10 mg PO .TAPER #1 tab.ds.pk Benzonatate [Tessalon Perles] 100 mg PO Q8HR PRN #20 capsule PRN Reason: Cough Referrals: PRIMARY CARE, [Primary Care Provider] - 3-5 Days SANIYA WOLFE MD [Staff Physician] - 3-5 Days (Lung specialist) Time of Disposition: 13:44
[2021-03-18 08:52] LABS: Basophils # (Auto) 0.1 K/mm3 (0.0-0.1); Basophils % (Auto) 0.5 % (0.0-1.8); Eosinophils # (Auto) 0.1 K/mm3 (0.0-0.4); Eosinophils % (Auto) 1.1 % (0.0-4.3); Hematocrit 43.4 % (35.5-45.6); Hemoglobin 14.7 gm/dl (11.8-15.2); Lymphocytes # (Auto) 0.6 K/mm3 (1.2-5.4); Lymphocytes % (Auto) 4.5 % (13.4-35.0); Mean Corpuscular HGB Conc 34 % (32-34); Mean Corpuscular Volume 96 fl (84-94); Monocytes # (Auto) 0.8 K/mm3 (0.0-0.8); Platelet Count 215 K/mm3 (140-440); Red Blood Count 4.54 M/mm3 (3.65-5.03); Red Cell Distribution Width 15.4 % (13.2-15.2)
--- NOTE | 2021-03-18 08:52 | XRay Report ---
CHEST 1 VIEW INDICATION / CLINICAL INFORMATION: sob, cough. COMPARISON: 03/01/2021 FINDINGS: SUPPORT DEVICES: None. HEART / MEDIASTINUM: No significant abnormality. LUNGS / PLEURA: Allowing for low lung volumes, No acute pulmonary or pleural abnormality. Right upper lobe emphysema again noted and similar with reference. No pneumothorax. ADDITIONAL FINDINGS: No significant additional findings. IMPRESSION: 1. No acute findings. Signer Name: Denver Clark MD Signed: 03/18/2021 8:48 AM Workstation Name: [id number]
[2021-03-18 09:09] LABS: Calcium 9.2 mg/dL (8.4-10.2)
[2021-03-18] MEDS ORDERED: ALBUTEROL 2.5 MG/3 ML NEBU IH ONE (11:41)
[2021-03-18 14:36] VITALS: BP 123/68
== END 2021-03-18 16:12 | disposition home or self-care (01) ==
LOC: ED 06:28
DX: J43.9 Emphysema, unspecified (principal); I10 Essential (primary) hypertension; Z99.81 Dependence on supplemental oxygen; Z87.891 Personal history of nicotine dependence; Z79.899 Other long term (current) drug therapy
CPT/HCPCS: 36415; 71045; 80048; 85025; 94640; 96374; 99284; J2930; 94644